=== PATIENT | male | born 1955 | race Caucasian/White ===

== ENCOUNTER 2018-03-17 16:52 | Observation (INO) | payer MEDICARE, SELFPAY ==
[2018-03-17] VITALS (7 sets, daily range): BP systolic 116–143; BP diastolic 76–87; PULSE 62–89; RESP 16–22; TEMP 36.4–37.4; O2SAT 89–96; BMI 28.7; BMI 29.0
--- NOTE | 2018-03-17 17:07 | EKG12_ITS ---
Test Reason : SOB Blood Pressure : / mmHG Vent. Rate : 085 BPM Atrial Rate : 085 BPM P-R Int : 216 ms QRS Dur : 158 ms QT Int : 388 ms P-R-T Axes : 034 -26 114 degrees QTc Int : 461 ms Sinus rhythm with 1st degree A-V block Left bundle branch block Abnormal ECG Confirmed by TIFFANY GIPSON, SHARONDA ([id number]), scientific editor ANTONINO BUNCH ([id number] on 03/20/2018 12:54:52 PM Referred By: KARIE Confirmed By:SHARONDA ALLEN MD
--- NOTE | 2018-03-17 17:12 | ED.VISSUMM ---
- ER Visit Summary Date of Service: 03/17/18 Chief Complaint: Shortness of breath History of Present Illness: The patient is a 63 M with cough and congestion that started on the . states he woke early the morning of the with difficulty breathing and increased mucus production. He is complaining of upper abdominal soreness from coughing. states he was complaining of some left chest pain on the way to the ER, but he denied this. Patient was seen by PCP in the office today and sent to the ER. His oxygen saturation was reported 92%. 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 Physical Examination: Vital signs are unremarkable. Respiratory rate is 16 and pulse ox is 92% on room air. Head neck examination is unremarkable. Heart is regular rate and rhythm. Lung sounds are slightly diminished throughout. Abdomen is soft nontender. Lower external examination was no calf tenderness or edema. Neuro exam reveals mild left facial droop that is chronic and unchanged from baseline. Test Results: EKG is sinus 85 with a first-degree AV block and a left bundle branch block. No acute ST change noted. Portable chest x-ray shows COPD with fibrosis and atelectasis or infiltrate in the right base. CBC was normal white count with left shift is noted with 82% neutrophils. Chemistry studies are normal. Troponin is less than 0.02. BNP is normal. Blood cultures were obtained. Emergency Department Course and Treatment: Patient was given a DuoNeb treatment IV fluids. He will be given Rocephin and Zithromax. I did take him off of supplemental oxygen and his oxygen saturation came down to 89%. He is generally weak. When he gets ill reportedly has myotonic dystrophy gets worse. Temperature at this time is 99.2. I will speak with hospitalist regarding admission. Treatment Plan: [] Disposition: Admit Impression: 1. Bronchitis with mild hypoxia 2. 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 It may contain incorrect words, spelling, and punctuation that were not noted in review of the chart prior to signing ED Disposition - Plan for ED Patient: Chief Complaint: Shortness of Breath Referrals: Isak Hernandez MD [Primary Care Provider] -
--- NOTE | 2018-03-17 17:15 | RAD_ITS ---
STUDY: X-RAY CHEST REASON FOR EXAM: Male, 63 years old. Short of breath. Chest pain. Nausea. TECHNIQUE: Single AP portable view of the chest. COMPARISON: None. FINDINGS: The lungs are hyperexpanded. There are coarsened interstitial markings suggestive of mild chronic fibrosis. Focal atelectasis or infiltrate in the right lung base. No gross effusions. Normal size heart. Normal mediastinum and caroline. Normal visualized pulmonary arteries. Normal visualized aortic arch and descending thoracic aorta. Normal visualized thoracic spine. Normal visualized ribs, clavicles, and shoulders. There is no demonstrated abnormality of the visualized soft tissue structures of the upper abdomen. RAD/Chest 1 View (Portable) IMPRESSION: COPD with fibrosis, and atelectasis or infiltrate in the right lung base. Electronically Signed: Manan Bryson MD at 17:32 EDT , Service support ,
[2018-03-17] MEDS: Ipratropium/Albuterol Sulfate 3 ML AMPUL.NEB INHALATION ×2 (17:22→22:27)
[2018-03-17 17:45] LABS: Absolute Lymphocyte Count 1.06 X10^3/ul (0.83-4.51); Absolute Neutrophil Count 8.1 X10^3/uL (2.0-7.7); Basophil# 0.01 X10^3/uL; Basophil% 0.1 % (0-1); Eosinophil# 0.01 X10^3/uL; Eosinophils% 0.1 % (0-5); Hematocrit 48.3 % (40-54); Hemoglobin 16.4 g/dl (13.0-16.5); Lymphocyte # 1.06 X10^3/ul (4.0); Lymphocyte % 10.8 % (19-41); Mean Corpuscular Hgb 32.8 pg (27.0-32.0); Mean Corpuscular Volume 96.6 fL (80-94); Mean Platelet Vol. 10.6 fl (6.2-12.0); Monocyte# 0.63 X10^3/uL; Monocyte% 6.4 % (0-10); Neutrophil # 8.11 X10^3/uL (2.7-7.7); Neutrophil % 82.5 % (47-70); Platelet Count 169 K/mm3 (150-450); RBC Distribution Width CV 14.3 % (11.6-14.6); RBC Distribution Width SD 50.7 fl (35.1-43.9); White Blood Count 9.8 K/mm3 (4.4-11.0)
[2018-03-17] MEDS: 0.9% Normal Saline 1,000 ML 150 ML IV (17:45)
[2018-03-17 17:46] LABS: POSITIVE COUNT NO; POSITIVE DIFFERENTIAL NO; POSITIVE MORPHOLOGY NO
[2018-03-17 18:05] LABS: Anion Gap 5 (5-15); BUN 13 mg/dL (7-18); BUN/Creat Ratio 11.2 RATIO (10-20); Calcium,Total 9.3 mg/dL (8.5-10.1); Chloride 107 mmol/L (98-107); Creatinine, Serum 1.16 mg/dL (0.70-1.30); EST Glomerular Filtration Rate 68 mL/min (>60); Est Glom Filt Rate - Afr Amer 82 mL/min (>60); Estimated Creatinine Clearance 68.18 ml/min; Glucose 100 mg/dL (74-106); Potassium 3.9 mmol/L (3.5-5.1); Sodium Level 140 mmol/L (136-145)
[2018-03-17 18:08] LABS: BNP,B-Type NATRIURETIC PEPTIDE 38.3 pg/mL (0-100)
[2018-03-17] MEDS: Ceftriaxone 1 GM/50 mL Premix x1 IV (20:33)
--- NOTE | 2018-03-17 20:42 | HP.PCM_ITS ---
Problem List (1) Shortness of breath Status: Acute (2) Myotonia Status: Chronic (3) History of colon polyps Status: Chronic (4) Family history of colon cancer in father Status: Chronic History of Present Illness Date of Admission: 03/17/18 Chief Complaint: shortness of breath The patient is a 63 year old male patient with a significant past medical history of Myotonia presents to the her from his primary care physician's office with shortness of breath. He was complaining of difficulty of breathing and inability to have a productive cough to clear his airway adequately due to myotonia. He is more comfortable since receiving airway inhalation treatments and oxygen per nasal cannula. Chest x-ray shows a hyperinflation pattern compatible with COPD and pulmonary fibrosis along with atelectasis vs pneumonia in the right side. Blood count is within normal limits. Since patient failed outpatient therapy and was uncomfortable taking him home from ER he will be admitted for observation. Past Medical History Past Medical History (Chronic Problems): Chronic Problems Myotonia (Chronic) History of colon polyps (Chronic) Family history of colon cancer in father (Chronic) Allergies No Known Allergies Allergy (Verified 03/17/18 16:54) Home Medications: Ambulatory Orders Medication Instructions Recorded NK [NK] 11/07/17 Smoking Status: Never smoker - *Family History Paternal History Items: Cancer - Father had colorectal cancer Review of Systems Constitutional: Reports: Weakness - due to chronic disease, Fatigue. Denies: Chills, Fever, Weight Change HEENT: Denies: Head Aches, Sinus Congestion, Sinus Drainage Cardiovascular: Denies: Chest Pain, Palpitations Respiratory: Reports: Cough, Shortness of breath at rest. Denies: Sputum production Gastrointestinal: Denies: Abdominal Pain, Nausea, Vomiting Genitourinary: Denies: Dysuria Musculoskeletal: Denies: Joint Pain, Joint Tenderness Skin: Denies: Rash, Wounds Neurological: Denies: Numbness, Tingling, Focal weakness Psychiatric: Denies: Anxiety, Depression, Homicidal Ideations, Suicidal Ideations Hematologic/ Lymphatic: Denies: Easy Bruising, Easy Bleeding VTE Information - Inpt Only VTE Present on Admission: No VTE Mechan Device Prophylaxis: None VTE Pharm Prophylaxis ordered?: Yes Patient Problems: Active and Suspected Problems Shortness of breath (Acute) - Physical Exam General: Alert, Oriented x3, Cooperative HEENT: Atraumatic, Normocephalic Neck: Supple Lungs: Normal air movement, - - coarse lung sounds Cardiovascular: Regular rate, No murmurs Abdomen: Bowel Sounds Present, Soft, Non Tender Extremities: No edema, Capillary Refill Less than 3 Seconds Skin: No rashes Musculoskeletal: Muscle Wasting Neurological: Neuro grossly intact Psych/Mental Status: Normal Affect, Appropriate Vital Signs Temp Pulse Resp BP Pulse Ox 99.3 F H 62 16 143/76 H 89 03/17/18 20:22 03/17/18 18:10 03/17/18 18:10 03/17/18 16:53 03/17/18 20:22 Oxygen Flow Rate (L/min) 2 Oxygen Delivery Method Room Air Weight: 200 lb Body Mass Index (BMI) 28.7 Laboratory Tests Past 24 Hrs 03/17/18 03/17/18 03/17/18 17:30 17:30 17:30 WBC 9.8 RBC 5.00 Hgb 16.4 Hct 48.3 MCV 96.6 H MCH 32.8 H MCHC 34.0 RDW 14.3 RDW Differential 50.7 H Plt Count 169 MPV 10.6 Immature Gran % (Auto) 0.100 Neut % (Auto) 82.5 H Lymph % (Auto) 10.8 L [place] % (Auto) 6.4 Eos % (Auto) 0.1 Baso % (Auto) 0.1 Absolute Neuts (auto) 8.1 H Absolute Lymphs (auto) 1.06 Total Counted Not Reportable Sodium 140 Potassium 3.9 Chloride 107 Carbon Dioxide 28.0 Anion Gap 5 BUN 13 Creatinine 1.16 Estim Creat Clear Calc 68.18 Est GFR (MDRD) Af Amer 82 Est GFR (MDRD) Non-Af 68 BUN/Creatinine Ratio 11.2 Glucose 100 Calcium 9.3 Troponin I < 0.02 B-Natriuretic Peptide 38.3 Assessment/Plan Active and Suspected Problems Shortness of breath (Acute) Chronic conditions - Myotonia Plan - admit to medical surgical floor for observation - PT eval and treat in am for deconditioning due to Myotonia for ADLs and fall risk - duoneb inh q 4hrs prn - oxygen per protocol - solumedrol 40mg iv q 8hrs - levaquin 500mg iv q day - LMWH for dvt prophylaxis - CBC, BMP in am Code Visit OBSV E&M: 47807 Initial observation care L2
[2018-03-17] MEDS: levoFLOXacin IV 500 MG/100 ML BAG 100 MG IV (22:32)
[2018-03-17] MEDS: 0.9% Normal Saline 1,000 ML 75 ML IV (22:32)
[2018-03-18 03:57] VITALS: BP 121/86; PULSE 93; RESP 20; TEMP 36.8; O2SAT 95
[2018-03-18 06:56] LABS: Absolute Lymphocyte Count 0.53 X10^3/ul (0.83-4.51); Absolute Neutrophil Count 3.9 X10^3/uL (2.0-7.7); Differential Indicated SCAN CRITERIA MET; Hematocrit 44.4 % (40-54); Hemoglobin 15.4 g/dl (13.0-16.5); Lymphocyte # 0.53 X10^3/ul (4.0); Lymphocyte % 11.8 % (19-41); Mean Corp Hgb Conc 34.7 g/gl (32-36); Mean Corpuscular Hgb 33.4 pg (27.0-32.0); Mean Corpuscular Volume 96.3 fL (80-94); Mean Platelet Vol. 10.8 fl (6.2-12.0); Monocyte% 2.2 % (0-10); Neutrophil # 3.85 X10^3/uL (2.7-7.7); Neutrophil % 85.8 % (47-70); POSITIVE COUNT NO; POSITIVE DIFFERENTIAL YES; POSITIVE MORPHOLOGY NO; Platelet Count 145 K/mm3 (150-450); RBC Distribution Width CV 14.2 % (11.6-14.6); RBC Distribution Width SD 48.6 fl (35.1-43.9); Red Blood Count 4.61 M/mm3 (4.6-6.2); White Blood Count 4.5 K/mm3 (4.4-11.0)
[2018-03-18 07:08] LABS: ALB/GLOB Ratio 0.8 RATIO (0.9-2.4); AST(SGOT) 17 U/L (15-37); Alanine Aminotransfer ALT/SGPT 21 U/L (16-61); Albumin, Serum 2.9 g/dL (3.2-5.0); Alkaline Phosphatase 64 U/L (45-117); Anion Gap 7 (5-15); BUN 10 mg/dL (7-18); BUN/Creat Ratio 11.6 RATIO (10-20); Calcium,Total 8.3 mg/dL (8.5-10.1); Chloride 112 mmol/L (98-107); Creatinine, Serum 0.86 mg/dL (0.70-1.30); EST Glomerular Filtration Rate 95 mL/min (>60); Est Glom Filt Rate - Afr Amer 115 mL/min (>60); Estimated Creatinine Clearance 91.96 ml/min; Globulin 3.5 g/dL (2.2-4.2); Glucose 145 mg/dL (74-106); Protein, Total 6.4 g/dL (6.4-8.2); Sodium Level 143 mmol/L (136-145)
[2018-03-18 07:17] VITALS: PULSE 84; RESP 16; O2SAT 94
[2018-03-18] MEDS: Ipratropium/Albuterol Sulfate 3 ML AMPUL.NEB INHALATION ×2 (07:17→10:57)
--- NOTE | 2018-03-18 07:32 | PCM.PN.HOSP ---
Subjective: Patient was seen and examined. Feels much better. No wheezes. On only 1 L of oxygen. Reevaluated his oxygen requirement and patient was saturating 95%. Ambulated around the nursing floor with no shortness of breath. Vitals/I&O's: Vital Signs Temp Pulse Resp BP Pulse Ox 98.2 F 93 20 H 121/86 H 95 03/18/18 03:57 03/18/18 03:57 03/18/18 03:57 03/18/18 03:57 03/18/18 03:57 Oxygen Flow Rate (L/min) 1 Oxygen Delivery Method Nasal Cannula Weight: 91.739 kg Body Mass Index (BMI) 29.0 Intake and Output for Last 24 Hours 03/16/18 03/17/18 03/18/18 23:59 23:59 23:59 Intake Total 1210 / 1210 Balance 1210 / 1210 General: Alert, Oriented x3, Cooperative, No apparent distress HEENT: Atraumatic, PERRLA, EOMI, Normocephalic Oral: Moist Mucosa Neck: Supple Lungs: Clear to auscultation, Normal air movement Cardiovascular: Regular rate, Regular Rhythm, Normal S1, Normal S2, No murmurs Abdomen: Bowel Sounds Present, Soft, Non Tender, Non-Distended, No Hepato-splenomegaly Extremities: No edema Skin: No rashes, No breakdown Musculoskeletal: No Tenderness to Palpation of Joints or Extremities Lymphatic: No Cervical, Supraclavicular, or Inguinal Adenopathy Neurological: Cranial nerves II-XII grossly intact, Neuro grossly intact Psych/Mental Status: Normal Affect, Appropriate Laboratory Results 03/18/18 06:15: WBC 4.5, RBC 4.61, Hgb 15.4, Hct 44.4, MCV 96.3 H, MCH 33.4 H, MCHC 34.7, RDW 14.2, RDW Differential 48.6 H, Plt Count 145 L, MPV 10.8, Immature Gran % (Auto) 0.200, Neut % (Auto) 85.8 H, Lymph % (Auto) 11.8 L, Dare % (Auto) 2.2, Eos % (Auto) 0.0, Baso % (Auto) 0.0, Absolute Neuts (auto) 3.9, Absolute Lymphs (auto) 0.53 L, Total Counted Not Reportable 03/18/18 06:15: Sodium 143, Potassium 4.0, Chloride 112 H, Carbon Dioxide 24.0, Anion Gap 7, BUN 10, Creatinine 0.86, Estim Creat Clear Calc 91.96, Est GFR (MDRD) Af Amer 115, Est GFR (MDRD) Non-Af 95, BUN/Creatinine Ratio 11.6, Glucose 145 H, Calcium 8.3 L, Total Bilirubin 1.00, AST 17, ALT 21, Alkaline Phosphatase 64, Total Protein 6.4, Albumin 2.9 L, Globulin 3.5, Albumin/Globulin Ratio 0.8 L Current Medications Albuterol/Ipratropium (Duoneb) 3 ml INHALATION Q4H.RT [facility] Last Admin: 03/18/18 07:17 Dose: 3 ml Enoxaparin Sodium (Lovenox) 40 mg SC DAILY@1000 OSMANY Sodium Chloride () 1,000 mls @ 75 mls/hr IV .[id number] [facility] Last Admin: 03/17/18 22:32 Dose: 75 mls/hr Levofloxacin (Levaquin Iv) 500 mg in 100 mls @ 100 mls/hr IV Q24 [facility] Last Admin: 03/17/18 22:32 Dose: 100 mls/hr Magnesium Hydroxide (Milk Of Magnesia) 30 ml PO DAILY PRN PRN PRN Reason: Constipation Methylprednisolone (Solu-Medrol) 40 mg IV Q8 [facility] Last Admin: 03/18/18 05:28 Dose: 40 mg Sodium Chloride () 5 - 30 ml IV UD PRN PRN Reason: SALINE FLUSH Medical Necessity - Tobacco Use Smoking Status: Never smoker Assessment/Plan 63-year-old male with myotonic dystrophy who comes in with shortness of breath and has been managed as acute bronchitis. 1. Acute hypoxic respiratory failure secondary to acute bronchitis, resolved, off oxygen, did not qualify for home oxygen. 2. Acute bronchitis/acute COPD exacerbation, patient improved on steroids and breathing treatments, discharged on p.o. prednisone and Z-Calvin. 3. Myotonic dystrophy, no evidence of weakness seen on exam, follows in the outpatient. 4. DVT Prophylaxis with early ambulation/Lovenox Code Visit Inpatient E&M: 00934 Disch Hosp
[2018-03-18] MEDS: Enoxaparin 40 MG/0.4 ML Syringe SC (09:54)
[2018-03-18] MEDS: levoFLOXacin IV 500 MG/100 ML BAG 100 MG IV (09:56)
[2018-03-18 10:01] VITALS: O2SAT 91; O2SAT 92
[2018-03-18 10:08] VITALS: BP 114/56; PULSE 68; RESP 16; TEMP 36.5; O2SAT 92
--- NOTE | 2018-03-18 10:08 | PCM.DC ---
- Discharge Diagnoses Current Active Problems: Current Active and Chronic Problems Shortness of breath (Acute) Myotonia (Chronic) Reason(s) for Visit for Discharge Instructions: Shortness of breath You will use the following diet at home:: Regular Your food should be the consistency of: Regular Your liquids should be the consistency of: Regular/Thin Discharge Activity: Return to Normal Activity Additional Instructions: You were admitted with SOB and managed as acute bronchitis. You were managed on oxygen but did not require oxygen prior to discharge. You are being discharged on antibiotics and a short course of steroids. Follow-up with your primary care doctor. Continue to use your incentive spirometer. Allergies/Adverse Reactions: Allergies No Known Allergies Allergy (Verified 03/17/18 16:54) Medications to take at Discharge Levofloxacin [Levaquin] 500 mg PO DAILY #4 tab 03/18/18 Prednisone [Deltasone] 40 mg PO DAILY #5 tab 03/18/18 The following prescriptions were given: Levofloxacin [Levaquin] 500 mg PO DAILY #4 tab Prednisone [Deltasone] 40 mg PO DAILY #5 tab Primary Care Physician: Isak Hernandez MD [Primary Care Provider] - Please follow up with your Primary Care Physician in: within 2 weeks Proposed Discharge Date: 03/18/18
--- NOTE | 2018-03-18 10:12 | PCM.DC.SUM ---
Discharge Date and Diagnosis Date of Admission: 03/17/18 Date of Discharge: 03/18/18 - Primary Discharge Diagnosis Active and Suspected Problems Shortness of breath (Acute) - Secondary Discharge Diagnosis Chronic Problems Myotonia (Chronic) History of colon polyps (Chronic) Family history of colon cancer in father (Chronic) Hospital Course and Treatment Imaging Results: Clinical Impression(s) from Imaging Studies Chest X-Ray 03/17/18 17:15 IMPRESSION: COPD with fibrosis, and atelectasis or infiltrate in the right lung base. Electronically Signed: Manan Bryson MD at 17:32 EDT , Service support , None Operations: None Procedures: None Summary of Care Provided: 63-year-old male with myotonic dystrophy who comes in with shortness of breath and has been managed as acute bronchitis. 1. Acute hypoxic respiratory failure secondary to acute bronchitis, resolved, off oxygen, did not qualify for home oxygen. 2. Acute bronchitis/acute COPD exacerbation, patient improved on steroids and breathing treatments, discharged on p.o. prednisone and Z-Calvin. Respiratory panel was pending at time of discharge. 3. Myotonic dystrophy, no evidence of weakness seen on exam, follows in the outpatient. Discharge Diet: Low fat/ Low Cholesterol, 2000 mg Sodium Diet Discharge Activity: Return to Normal Activity Home Medications: Medications to take at Discharge Azithromycin [Zithromax Z-Calvin] 250 mg PO UD #1 box 03/18/18 Prednisone [Deltasone] 40 mg PO DAILY #5 tab 03/18/18 Following Prescrptions Were Given to Patient: Azithromycin [Zithromax Z-Calvin] 250 mg PO UD #1 box Prednisone [Deltasone] 40 mg PO DAILY #5 tab Primary Care Physician: Isak Hernandez MD [Primary Care Provider] - Please follow up with your Primary Care Physician in: within 2 weeks Disposition: Home Minutes spent on discharge:: 35 Patient Condition:: Stable Medical Necessity - Tobacco Use Smoking Status: Never smoker Meaningful Use Info Meaningful Use Diagnoses (Choose all that apply): None applicable Code Visit Inpatient E&M: 71096 Disch Hosp
[2018-03-18 10:57] VITALS: PULSE 82; RESP 16
== END 2018-03-18 12:45 | disposition home or self-care (01) ==
LOC: ED 17:11 → MS3 21:00
PROVIDERS: Admitting Provider Family Medicine; Emergency Provider Emergency Medicine; Family Provider Family Medicine; PCP Family Medicine; Visit Provider Internal Medicine
DX: J44.1 Chronic obstructive pulmonary disease with (acute) exacerbation (principal); J20.9 Acute bronchitis, unspecified; M62.89 Other specified disorders of muscle; Z86.010 Personal history of colon polyps; Z80.0 Family history of malignant neoplasm of digestive organs; J44.0 Chronic obstructive pulmonary disease with (acute) lower respiratory infection; J96.01 Acute respiratory failure with hypoxia; J84.10 Pulmonary fibrosis, unspecified
CPT/HCPCS: 36415; 71045; 80048; 80053; 83880; 84484; 85025; 87040; 87633; 93005; 94640; 96361; 96365; 96366; 96367; 96372; 96375; 96376; 97162; 99218; 99284; J7030; A4216; G0378

== ENCOUNTER → 2018-07-02 11:04 | Outpatient (CLI) | payer MEDICARE, SELFPAY ==
--- NOTE | 2018-07-02 11:07 | RAD_ITS ---
STUDY: X-RAY CHEST REASON FOR EXAM: Male, 63 years old. Cough TECHNIQUE: Frontal and lateral views of the chest COMPARISON: 03/17/2018 FINDINGS: The lungs are clear. There are no pleural effusions. There is no pneumothorax. The heart is normal in size. The visualized osseous structures are within normal limits. RAD/Chest PA and Lateral IMPRESSION: No acute thoracic pathology. Electronically Signed: Shashi Acosta, at 20:14 EDT Tel , Service support ,
== END ==
PROVIDERS: Family Provider Family Medicine; PCP Family Medicine; Visit Provider Family Medicine
DX: J18.9 Pneumonia, unspecified organism (principal)
CPT/HCPCS: 71046

== ENCOUNTER → 2018-10-14 09:22 | Outpatient (CLI) | payer MEDICARE, SELFPAY ==
[2018-10-14 12:26] LABS: Absolute Lymphocyte Count 2.15 X10^3/ul (0.83-4.51); Absolute Neutrophil Count 2.1 X10^3/uL (2.0-7.7); Basophil# 0.05 X10^3/uL; Eosinophil# 0.25 X10^3/uL; Hematocrit 48.2 % (40-54); Hemoglobin 16.7 g/dl (13.0-16.5); Lymphocyte # 2.15 X10^3/ul (4.0); Lymphocyte % 42.7 % (19-41); Mean Corp Hgb Conc 34.6 g/gl (32-36); Mean Corpuscular Hgb 33.7 pg (27.0-32.0); Mean Corpuscular Volume 97.2 fL (80-94); Mean Platelet Vol. 11.6 fl (6.2-12.0); Monocyte# 0.47 X10^3/uL; Monocyte% 9.3 % (0-10); Neutrophil % 41.8 % (47-70); POSITIVE COUNT NO; POSITIVE DIFFERENTIAL NO; POSITIVE MORPHOLOGY NO; Platelet Count 202 K/mm3 (150-450); RBC Distribution Width CV 14.1 % (11.6-14.6); RBC Distribution Width SD 49.8 fl (35.1-43.9); Red Blood Count 4.96 M/mm3 (4.6-6.2)
[2018-10-14 12:52] LABS: Anion Gap 8 (5-15); BUN 10 mg/dL (7-18); BUN/Creat Ratio 10.6 RATIO (10-20); Calcium,Total 8.8 mg/dL (8.5-10.1); Chloride 110 mmol/L (98-107); Cholesterol 185 mg/dL (200); Creatinine, Serum 0.94 mg/dL (0.70-1.30); EST Glomerular Filtration Rate 86 mL/min (>60); Est Glom Filt Rate - Afr Amer 104 mL/min (>60); Glucose 81 mg/dL (74-106); High Density Lipoprotein 46 mg/dL; Potassium 3.8 mmol/L (3.5-5.1); Sodium Level 145 mmol/L (136-145); Thyroid Stim Hormone (TSH) 1.36 uIU/mL (0.358-3.74); Triglycerides 138 mg/dL; Very Low Density Lipoprotein 28 mg/dL (5-40)
[2018-10-14 12:54] LABS: Vitamin B12 286 pg/mL (211-911)
== END ==
PROVIDERS: Family Provider Family Medicine; PCP Family Medicine; Visit Provider Family Medicine
DX: E53.8 Deficiency of other specified B group vitamins (principal); G71.11 Myotonic muscular dystrophy; Z13.220 Encounter for screening for lipoid disorders
CPT/HCPCS: 36415; 80048; 80061; 82607; 84443; 85025

== ENCOUNTER → 2019-06-23 16:51 | Outpatient (CLI) | payer MEDICARE, SELFPAY ==
[2018-03-17 21:37] VITALS: BMI 29.0
--- NOTE | 2019-06-23 16:55 | RAD_ITS ---
STUDY: X-RAY - RIGHT FOOT CLINICAL: Male, 64 years old. Injury in early May, continued pain TECHNIQUE: 3 view(s) of the foot. COMPARISON: None. FINDINGS: There is demineralization of the rear and midfoot bones. Normal visualized subtalar, talonavicular, calcaneocuboid, tarsal and tarsometatarsal articulations. Normal metatarsi. Normal metatarsophalangeal joint of the great toe. Normal tibial and fibular sesamoid bones. Normal interphalangeal joint of the great toe. Normal phalanges of the great toe. Normal second through fifth metatarsophalangeal joints. Normal interphalangeal joints and phalanges of the lesser toes. Arterial calcifications are seen in the ankle and foot region. RAD/Foot min 3 Views IMPRESSION: Generalized osteopenia. There is no evidence of fracture, dislocation, or significant degenerative disease. Soft tissue arterial calcifications are noted in the ankle and foot area. Electronically Signed: Mg Youngblood MD at 23:57 EDT , Service support ,
== END ==
PROVIDERS: Family Provider Family Medicine; PCP Family Medicine; Referring Provider Family Medicine; Visit Provider Family Medicine
DX: M79.671 Pain in right foot (principal)
CPT/HCPCS: 73630

== ENCOUNTER → 2019-09-17 13:34 | Outpatient (CLI) | payer MEDICARE, SELFPAY ==
[2018-03-17 21:37] VITALS: BMI 29.0
[2019-09-17 16:02] LABS: Vitamin D,25 Hydroxy 23.4 ng/mL (29.95-100.01)
== END ==
PROVIDERS: Family Provider Family Medicine; PCP Family Medicine
DX: E55.9 Vitamin D deficiency, unspecified (principal); G71.11 Myotonic muscular dystrophy
CPT/HCPCS: 36415; 82306

== ENCOUNTER → 2019-10-05 14:28 | Outpatient (CLI) | payer MEDICARE, SELFPAY ==
[2019-10-05 16:44] LABS: PSA,Total - Annual Screen 0.69 ng/mL (0.00-4.00)
== END ==
PROVIDERS: Family Provider Family Medicine; PCP Family Medicine; Visit Provider Family Medicine
DX: Z12.5 Encounter for screening for malignant neoplasm of prostate (principal); Z80.42 Family history of malignant neoplasm of prostate
CPT/HCPCS: 36415; 84153; G0103

== ENCOUNTER → 2020-01-12 13:02 | Outpatient (CLI) | payer MEDICARE, SELFPAY ==
[2020-01-12 13:06] LABS: Red Blood Cells-Urine 0 SEEN /hpf (0-5); Squamous Epithelial Cells - UA 0 SEEN /hpf (0-5); White Blood Cells 0 SEEN /hpf (0-5)
[2020-01-12 15:12] LABS: Color, Urine Yellow (Yellow); Glucose, Dipstick Normal (Normal); Ketone-Dipstick Negative (Negative); Leukocyte Esterase-Dipstick Negative /ul (Negative); Nitrite-Dipstick Negative (Negative); Occult Blood-Urine Negative /ul (Negative); Protein-Dipstick Negative (Negative); Specific Gravity, Urine 1.025 (1.002-1.030); Urine Bilirubin Dipstick Negative (Negative); Urine Clarity Clear (Clear); Urine Urobilinogen Normal (Normal)
[2020-01-12 15:22] LABS: Bacteria RARE /hpf (None Seen); Calcium Oxalate Crystals Ur 2+ /hpf (<or=2+); Mucous, Urine 2+ /hpf (<or=2+)
== END ==
PROVIDERS: PCP Family Medicine; Visit Provider Family Medicine
DX: R35.0 Frequency of micturition (principal)
CPT/HCPCS: 81001; 87086; 87088

== ENCOUNTER 2020-06-27 10:11 | Emergency (ER) | payer MEDICARE, SELFPAY ==
[2020-06-27 10:11] VITALS: BP 102/74; PULSE 79; RESP 17; TEMP 36.5; O2SAT 94
[2020-06-27 10:12] VITALS: BP 102/74; PULSE 79; RESP 17; TEMP 36.5; O2SAT 94; BMI 28.7
[2020-06-27 10:15] VITALS: BP 102/74; PULSE 79; RESP 17; TEMP 36.5; O2SAT 94
--- NOTE | 2020-06-27 10:21 | ED.DCSUM_ITS ---
History of Present Illness Chief Complaint: Cough Informant: Patient Narrative: Patient is a 65-year-old male with a past medical history of myotonia who presents to the emergency department for cough. No associated fevers or chills. No known sick contacts. He states that he had the hiccups 2 days ago.. He tried drinking some vinegar to stop them. 20 minutes after drinking this is when the cough started. He has had some clear sputum production. He has a history of pneumonia as well as severe bronchitis in the past per the family. He denies a smoking history. Has not had any leg swelling or calf pain. No associated chest pain or shortness of breath with this. No abdominal pain or nausea/vomiting. No diarrhea. He denies any headache, sore throat or stiff neck. No rashes. Nobody else with similar symptoms at home. He has not tried taking anything for this. Past Medical History - Allergies and Home Meds Allergies/Adverse Reactions: Allergies No Known Allergies Allergy (Verified 06/27/20 10:12) Primary Care Physician: Isak Hernandez MD [Primary Care Provider] - Past Medical History: - - Myotonia, hypertension, history of leaky heart valve Smoking Status: Never smoker - Family History Paternal Family History: Reports: Cancer - Father had colorectal cancer Review of Systems All systems negative except as indicated General: Denies: Chills, Fever, Sweats Eyes: Denies: Visual changes - bilaterally, Diplopia ENT: Denies: Rhinorrhea, Sore throat Cardiovascular: Denies: Chest pain, Palpitations Respiratory: Reports: Cough, Sputum. Denies: Dyspnea, Dyspnea on exertion Gastrointestinal: Denies: Abdominal pain, Nausea, Vomiting, Diarrhea Musculoskeletal: Denies: Back pain, Extremity Pain Skin: Denies: Rash, Wounds Neurological: Denies: Headache, Weakness, Numbness Physical Exam Vital Signs/Narrative: Vital Signs Temp Pulse Resp BP Pulse Ox 06/27/20 10:12 97.7 F L 79 17 102/74 94 General: Well nourished, Well developed, No Acute Distress Head: Normocephalic, Atraumatic Eyes: Perrl, EOMI ENT: Moist mucous membranes, No rhinorrhea. Negative for: Nasal congestion Neck: Supple, Nontender Cardiovascular: Regular rate, Regular rhythm, S3, Murmur Respiratory: No distress, CTA bilaterally, Chest nontender Abdomen: Soft, Nontender, Nondistended Back: Nontender Extremities: No edema. Negative for: Tenderness, Calf Tenderness Neurological: Alert, Oriented x3 Psychological: Normal affect, Normal Mood Diagnostic/Tx/Re-eval - Medical Decision Making Patient presents emergency department for cough. He does relate this to drinking vinegar prior to onset of symptoms. He denies any fevers or chills. No known sick contacts. No concern for coronavirus. Upon arrival to the emerge department vital signs within normal limits. He does not appear in any acute distress and has no increased work of breathing. Will obtain chest x-ray at this time. Since he has no chest pain or shortness of breath I do not feel any lab work are indicated at this time. X-ray did not show any acute cardiopulmonary abnormality. Patient not coughing throughout exam. He has no other complaints at this time. We will give a prescription for Tessalon Perles for symptomatic treatment at home. He needs to have close follow-up with his PCP. He develops any significant chest pain, shortness of breath or develops any fever/chills he can return to the emerge department anytime for reevaluation. At this time will treat as a viral URI. He understands and is agreeable with this plan. ED Disposition - Plan for ED Patient: Disposition: Home or Assisted Living Diagnosis: Cough Instructions: ED Upper Resp Infec No Abx Tx Prescriptions: Benzonatate [Tessalon Perle] 100 mg PO Q4H PRN PRN #20 cap PRN Reason: Cough Transmission Status: Received by [id number] Referrals: Isak Hernandez MD [Primary Care Provider] -
--- NOTE | 2020-06-27 11:06 | RAD_ITS ---
STUDY: X-RAY CHEST REASON FOR EXAM: Male, 65 years old. PRODUCTIVE COUGH AND SORE THROAT X2 DAYS TECHNIQUE: PA and lateral views of the chest. COMPARISON: Comparison is made with prior study dated 07/02/2018. FINDINGS: Hyperinflation. Scattered calcified granulomas. There is no demonstrated pleural abnormality. Normal size heart. Normal mediastinum and caroline. Normal visualized pulmonary arteries. Normal visualized aortic arch and descending thoracic aorta. Normal visualized thoracic spine. Normal visualized ribs, clavicles, and shoulders. There is no demonstrated abnormality of the visualized soft tissue structures of the upper abdomen. RAD/Chest PA and Lateral IMPRESSION: Hyperinflation. The lungs are clear. Electronically Signed: Gage Hernandez, at 11:18 EDT , Service support ,
[2020-06-27 11:41] VITALS: BP 101/75; PULSE 71; RESP 18; RESP 19; TEMP 37.2; O2SAT 94
== END 2020-06-27 11:42 | disposition home or self-care (01) ==
PROVIDERS: Emergency Provider Emergency Medicine; PCP Family Medicine
DX: R05 Cough (principal); I10 Essential (primary) hypertension
CPT/HCPCS: 71046; 99282

== ENCOUNTER → 2020-11-22 10:48 | Outpatient (CLI) | payer MEDICARE, SELFPAY ==
--- NOTE | 2020-11-22 10:50 | ECHOD_ITS ---
Reason For Study: CMP, AI, CHF Procedure This was a 2D Doppler, Color Flow transthoracic echocardiogram. The study was technically difficult. Exam performed in department. Left Ventricle Normal LV size. The estimated ejection fraction is 60 %. No evidence for diastolic dysfunction. No regional wall motion abnormalities noted. Right Ventricle Normal RV size. Normal systolic function. Atria Normal left atrium. Normal right atrium. No doppler evidence for ASD. Mitral Valve There is no mitral valve stenosis. No mitral valve insufficiency. Tricuspid Valve There is no tricuspid stenosis. Unable to estimate RV systolic pressure due to insufficient tricuspid regurgitant envelope. Trivial tricuspid valve insufficiency. Aortic Valve Trisinus/trileaflet aortic valve. There is no aortic stenosis. Trivial aortic valve insufficiency. Pulmonic Valve There is no pulmonic valvular stenosis. No pulmonic valve insufficiency. Great Vessels Normal aortic root. Pericardium/Pleural No pericardial effusion. MMode/2D Measurements & Calculations LVIDd: 4.8 cm IVSd: 1.2 cm Ao root diam: 3.8 cm LVIDs: 3.2 cm LVPWd: 1.2 cm FS: 32.9 % LAV(MOD-bp): 33.4 ml LA A4 area: 11.4 cm2 LA dimension(2D): 3.3 cm LAV(MOD-bp) Indexed: 15.8 ml/m2 LAV(MOD-sp2): 38.1 ml LAV(MOD-sp4): 23.3 ml RA A4 area: 11.9 cm2 Time Measurements MV dec time: 0.29 sec Doppler Measurements & Calculations MV E max tunde: 36.3 cm/sec Lat Peak E' Tunde: 4.5 cm/sec Med Peak E' Tunde: 4.1 cm/sec MV A max tunde: 54.8 cm/sec E/E' lat: 8.2 E/E' med: 8.8 MV E/A: 0.66 Ao V2 max: 109.3 cm/sec LV V1 max: 79.3 cm/sec PA V2 max: 98.8 cm/sec Ao max P.8 mmHg LV V1 max P.5 mmHg Ao V2 mean: 74.0 cm/sec LV V1 mean P.6 mmHg Ao mean P.4 mmHg LV V1 mean: 60.5 cm/sec Ao V2 VTI: 20.5 cm LV V1 VTI: 15.9 cm Interpretation Summary The estimated ejection fraction is 60 %. No evidence for diastolic dysfunction. Trivial aortic valve insufficiency. Ordering Physician: Shaw Lopez Referring Physician: Isak Hernandez Performed By: Mulu Kwon, ALISA, RVT
== END ==
PROVIDERS: PCP Family Medicine; Referring Provider Internal Medicine Cardiovascular Disease; Visit Provider Internal Medicine Cardiovascular Disease
DX: I42.9 Cardiomyopathy, unspecified (principal); I35.1 Nonrheumatic aortic (valve) insufficiency
CPT/HCPCS: 93306

== ENCOUNTER 2021-12-25 13:37 | Emergency (ER) | payer MEDICARE, SELFPAY ==
[2021-12-25 13:38] VITALS: BP 129/70; PULSE 70; RESP 18; TEMP 36.3; O2SAT 98; BMI 28.3
--- NOTE | 2021-12-25 14:35 | EDS_ITS ---
HPI History of Present Illness Chief Complaint: Fall Narrative Narrative: 66-year-old male presenting with head injury. He states that he slipped and fell getting out of the shower. His states that they were getting ready to go to the store and that she ran out to do some chores and was gone for 5 minutes and found him on the floor. He was awake. He seemed confused. He complained of nausea. She states that she had asked him 5 times if he was okay and then brought him to the emergency room. Patient has a contusion to the right side of his scalp occipitally. It is not actively bleeding. Patient also complains of neck pain. He initially had nausea but states this is resolved. He denies any other injuries at this time. 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 She has a wheelchair for him at home so he does not walk too much. [facility] Medical History Aortic valve disorder Cardiomyopathy in disease classified elsewhere Family history of colon cancer in father History of colon polyps LBBB (left bundle branch block) Myotonia Myotonic dystrophy Home Medications ascorbic acid (vitamin C) 500 mg tablet 500 mg PO DAILY 11/21/21 [History Last Taken Unknown] cholecalciferol (vitamin D3) 100 mcg (4,000 unit) tablet 100 mcg PO DAILY 11/21/21 [History Last Taken Unknown] carvedilol 3.125 mg tablet 3.125 mg PO BID #180 tab 11/30/21 [Rx Last Taken Unknown] losartan 25 mg tablet 25 mg PO DAILY #90 tab 11/30/21 [Rx Last Taken Unknown] Allergy/AdvReac Type Severity Reaction Status Date / Time lisinopril AdvReac Unknown Cough Verified 12/25/21 13:56 Family History Mother Heart disease Surgical History History of bilateral cataract extraction Social History Smoking Status: Never smoker alcohol intake: current substance use type: does not use ROS ROS ED Constitutional Constitutional ED: Denies chills, fever(s) or sweats Eyes Eyes: Denies blurry vision or change in vision ENT ENT ED: Denies ear pain or sore throat Cardiovascular Cardiovascular: Denies chest pain, palpitations or racing heartbeat Respiratory/Chest Respiratory/Chest: Denies cough, dyspnea or sputum Gastrointestinal Gastrointestinal: Reports nausea; Denies abdominal pain, constipation, diarrhea or vomiting Genitourinary Genitourinary ED: Denies dysuria, hematuria or urinary frequency Musculoskeletal Musculoskeletal: Reports neck pain; Denies arthralgias or myalgias Integumentary Reports other Details: Cephalohematoma with abrasion overlying ; Denies rash Neurologic Neurologic: Denies headache(s), paresthesias or weakness Psychiatric Psychiatric: Denies anxiety, depression, suicidal ideation or suicidal thoughts Endocrine Endocrinology: Denies polydipsia or polyuria EXAM Physical Exam Const Vital Signs: 12/25/21 13:38 12/25/21 13:58 Temperature 97.4 F L Temperature Source Temporal Pulse Rate 70 Respiratory Rate 18 Respiratory Effort Normal Non-Labored Respiratory Depth Normal Respiratory Pattern Normal Blood Pressure 129/70 H Blood Pressure Mean 89 Pulse Ox 98 Oxygen Delivery Method Room Air Room Air Positive well nourished, alert and oriented x3 General Appearance ED: Negative for pallor HEENT Reports normocephalic and moist mucous membranes HEENT Narrative: Cephalohematoma on the right occipital region approximately 3 cm with superficial abrasion overlying. No active bleeding. No skull deformity. Eyes PERRL and EOMs intact bilaterally Neck no lymphadenopathy and supple Chest Wall inspection of chest normal and palpation of chest normal Resp normal respiratory effort and clear to auscultation bilaterally Auscultation: Negative for rales, rhonchi or wheezes Cardio regular rate and regular rhythm GI normal to inspection, nondistended, normoactive bowel sounds and non-distended Auscultation: normoactive bowel sounds Palpation: soft Narrative: Deferred Back/Spine no CVA tenderness Cervical Spine: other Other Details: Cervical spinal tenderness without deformity or step-off. This is diffuse. Extremity normal to inspection General Extremety ED: Yes edema and tenderness General Extremity: edema Neuro oriented x3 and CN's II-XII intact bilaterally Sensorium / Orientation: alert Motor Exam: strength 5/5 throughout Psych mental status grossly normal Attitude: No agitated Skin General Skin Exam: Negative for jaundice or pallor MDM MDM MDM Narrative Medical decision making narrative: Obtain CT brain and cervical spine which did not show any acute findings. CT of the cervical spine was negative for fracture. His CT of the brain did show chronic involutional changes and did suggest that there may be normal pressure hydrocephalus. Patient has history of myotonic dystrophy and is difficult to ambulate him at baseline. His states that he is not more confused than usual or having urinary complaints. I did give him follow-up with neurology outpatient doctor Brittaney, and at this time they told me that they have a neurologist at [facility] who they lost contact with over the pandemic. He recommended that they follow-up with that neurologist consider known to him. They stated that he had reached out to them tried to get him to come back but they had not. I do not believe the patient has any reason he cannot be discharged home and follow-up with neurology outpatient. They are given return cautions. Impression: 1. Fall 2. Closed head injury 3. Cervical strain Radiography Diagnostic Testing: Clinical Impression(s) from Imaging Studies Brain CT 12/25/21 14:44 IMPRESSION: Chronic involutional changes of the brain. Findings suggestive of a normal pressure hydrocephalus. Electronically Signed: Gage Hernandez MD at 15:20 EST , Cervical Spine CT 12/25/21 14:44 IMPRESSION: Multilevel degenerative changes, as described above. Straightening of the normal cervical lordosis. Electronically Signed: Gage Hernandez MD at 15:22 EST , Discharge Plan Triage Chief Complaint: Fall ED Provider: Lionel Villanueva Dx/Rx/DC Orders Instructions: ED Scalp Contusion, ED Head Injury (Adult), ED Neck Sprain or Strain, ED Fall Prevention Prescriptions: No Action carvedilol 3.125 mg tablet 3.125 mg PO BID Qty: 180 RF: 3 losartan 25 mg tablet 25 mg PO DAILY Qty: 90 RF: 3 ascorbic acid (vitamin C) 500 mg tablet 500 mg PO DAILY RF: 0 cholecalciferol (vitamin D3) 100 mcg (4,000 unit) tablet 100 mcg PO DAILY RF: 0 Primary Care Provider: Isak Hernandez Referrals: Javier Huang MD [STAFF PHYSICIAN] - As soon as possible Isak Hernandez MD [Primary Care Provider] - Activity Restrictions/Additional Instructions: The CT scan of your brain today was interpreted as possibly being normal pressure hydrocephalus. I will give you follow-up with neurology for this. Disposition Disposition: Home, Self Care Discharge Date/Time: 12/25/21 16:50
--- NOTE | 2021-12-25 14:44 | CT_ITS ---
STUDY: CT CERVICAL SPINE WITHOUT CONTRAST REASON FOR EXAM: Male, 66 years old. Neck pain following a fall. RADIATION DOSAGE (If Supplied By Facility): CTDIvol = ( 20.04 ) mGy, DLP = ( 488.71 ) mGycm TECHNIQUE: High resolution transaxial imaging was performed without contrast material. Sagittal and coronal images were reconstructed. Individualized dose optimization techniques were used for this CT. COMPARISON: None FINDINGS: Normal craniovertebral junction. There are degenerative changes of the anterior atlantoaxial articulation. Normal odontoid process. There is straightening of the normal cervical lordosis. Normal vertebral bodies and posterior osseous elements. C2-3: Normal endplates. Normal disc height and morphology. Normal central canal and intervertebral neuroforamina. C3-4: Normal endplates. Normal disc height and morphology. Normal central canal and intervertebral neuroforamina. C4-5: Normal endplates. Normal disc height and morphology. Normal central canal and intervertebral neuroforamina. C5-6: Mild degree of disc space narrowing. No evidence of disc herniation. C6-7: Moderate degree of disc space narrowing. Uncovertebral arthrosis. Mild degree of bilateral neural foraminal stenosis. C7-T1: Normal endplates. Normal disc height and morphology. Normal central canal and intervertebral neuroforamina. Normal visualized soft tissue structures. CT/Spine Cervical without Contras IMPRESSION: Multilevel degenerative changes, as described above. Straightening of the normal cervical lordosis. Electronically Signed: Gage Hernandez MD at 15:22 EST ,
--- NOTE | 2021-12-25 14:44 | CT_ITS ---
STUDY: CT BRAIN WITHOUT CONTRAST REASON FOR EXAM: Male, 66 years old. Head injury due to a fall. RADIATION DOSAGE (If Supplied By Facility): CTDIvol = ( 47.06 ) mGy, DLP = ( 890.33 ) mGycm TECHNIQUE: Transaxial CT imaging of the brain was performed without administration of intravenous contrast material. Individualized dose optimization techniques were used for this CT. COMPARISON: No relevant priors. FINDINGS: Normal soft tissue structures. Normal calvarium. There is disproportionate enlargement of the lateral and third ventricles, as compared to the extra-axial spaces. The findings suggest normal pressure hydrocephalus (NPH). There is evidence of a cavum septum lucidum. Normal white matter tracts of the cerebral hemispheres. Normal basal ganglia and thalami. Normal brainstem. Normal cerebellum. There is no intracranial hemorrhage. There are no findings of an acute ischemic infarction. Atherosclerotic calcification of the cavernous portions of the internal carotid arteries bilaterally. Partial opacification of the ethmoid sinuses bilaterally. CT/Brain/Head without Contrast IMPRESSION: Chronic involutional changes of the brain. Findings suggestive of a normal pressure hydrocephalus. Electronically Signed: Gage Hernandez MD at 15:20 EST ,
== END 2021-12-25 16:50 | disposition home or self-care (01) ==
PROVIDERS: Emergency Provider Student in an Organized Health Care Education/Training Program; PCP Family Medicine; Visit Provider Student in an Organized Health Care Education/Training Program
DX: S09.90XA Unspecified injury of head, initial encounter (principal); S16.1XXA Strain of muscle, fascia and tendon at neck level, initial encounter; Y92.512 Supermarket, store or market as the place of occurrence of the external cause; R11.0 Nausea; W01.0XXA Fall on same level from slipping, tripping and stumbling without subsequent striking against object, initial encounter
CPT/HCPCS: 70450; 72125; 99282

== ENCOUNTER 2022-01-03 09:43 | Outpatient (CLI) | payer MEDICARE, SELFPAY ==
--- NOTE | 2022-01-03 09:49 | ECHOD_ITS ---
Reason For Study: CARDIOMYOPATHY Procedure This was a 2D Doppler, Color Flow transthoracic echocardiogram. The study was technically difficult. Exam performed in department. Left Ventricle Based upon the 2D echocardiographic images obtained there appears to be grossly normal left ventricular size, wall motion, and systolic function. The estimated ejection fraction is 55 %. No evidence for diastolic dysfunction. Right Ventricle Normal RV size. Normal systolic function. Atria Normal left atrium. Normal right atrium. No doppler evidence for ASD. Mitral Valve There is no mitral annular calcification. Normal mitral valve. Tricuspid Valve Normal tricuspid valve. Aortic Valve Trisinus/trileaflet aortic valve. Normal aortic valve. Trivial aortic valve insufficiency. Pulmonic Valve The pulmonic valve is not well visualized. Trivial pulmonic valve insufficiency. Great Vessels The ascending aorta is mildly dilated. Pericardium/Pleural No pericardial effusion. MMode/2D Measurements & Calculations LVIDd: 4.8 cm IVSd: 1.0 cm Ao root diam: 4.0 cm LVIDs: 3.0 cm LVPWd: 1.0 cm RVDd: 3.0 cm FS: 38.4 % LAV(MOD-bp): 33.7 ml LVAd ap4: 21.8 cm2 LVAd ap2: 25.8 cm2 LAV(MOD-bp) Indexed: 15.8 ml/m2 LVLd ap4: 6.5 cm LVLd ap2: 7.1 cm LAV(MOD-sp2): 27.5 ml EDV(MOD-sp4): 62.7 ml EDV(MOD-sp2): 80.0 ml LAV(MOD-sp4): 34.1 ml EDV(sp4-el): 62.6 ml EDV(sp2-el): 80.1 ml LVAs ap4: 12.2 cm2 LVAs ap2: 14.2 cm2 LVLs ap4: 5.5 cm LVLs ap2: 5.8 cm ESV(MOD-sp4): 22.8 ml ESV(MOD-sp2): 29.7 ml ESV(sp4-el): 22.9 ml ESV(sp2-el): 29.8 ml EF(MOD-sp4): 63.6 % EF(MOD-sp2): 62.9 % EF(sp4-el): 63.5 % SV(MOD-sp4): 39.8 ml SV(MOD-sp2): 50.3 ml SV(sp4-el): 39.7 ml LA dimension(2D): 3.1 cm LA A4 area: 15.0 cm2 RA A4 area: 11.5 cm2 Time Measurements MV dec time: 0.27 sec Doppler Measurements & Calculations MV E max tunde: 50.7 cm/sec Lat Peak E' Tunde: 7.2 cm/sec Med Peak E' Tunde: 5.0 cm/sec MV A max tunde: 59.9 cm/sec E/E' lat: 7.0 E/E' med: 10.1 MV E/A: 0.85 Ao V2 max: 100.0 cm/sec LV V1 max: 82.8 cm/sec PA V2 max: 93.5 cm/sec Ao max P.0 mmHg LV V1 max P.7 mmHg ECHO/Echo Complete Interpretation Summary The study was technically difficult. Based upon the 2D echocardiographic images obtained there appears to be grossly normal left ventricular size, wall motion, and systolic function. The estimated ejection fraction is 55 %. Trivial aortic valve insufficiency. Trivial pulmonic valve insufficiency. The ascending aorta is mildly dilated. No evidence for diastolic dysfunction. Ordering Physician: Rafael Jones Referring Physician: Isak Hernandez Performed By: Mulu Kwon, RDCS, RVT
== END 2022-01-03 23:59 | disposition home or self-care (01) ==
PROVIDERS: PCP Family Medicine; Referring Provider Internal Medicine Cardiovascular Disease; Visit Provider Internal Medicine Cardiovascular Disease
DX: G71.11 Myotonic muscular dystrophy (principal); I43 Cardiomyopathy in diseases classified elsewhere; I35.9 Nonrheumatic aortic valve disorder, unspecified; I44.7 Left bundle-branch block, unspecified
CPT/HCPCS: 93306

== ENCOUNTER 2022-03-01 09:27 | Outpatient (CLI) | payer MEDICARE, SELFPAY ==
[2022-03-01 12:03] LABS: Hematocrit 46.4 % (40-54); Hemoglobin 16.1 g/dL (13.0-16.5); Mean Corp Hgb Conc 34.7 g/dL (32-36); Mean Corpuscular Hgb 33.1 pg (27.0-32.0); Mean Corpuscular Volume 95.5 fL (80-94); Mean Platelet Vol. 10.6 fl (6.2-12.0); Platelet Count 249 K/mm3 (150-450); RBC Distribution Width CV 13.3 % (11.6-14.6); RBC Distribution Width SD 47.5 fl (35.1-43.9); Red Blood Count 4.86 M/mm3 (4.6-6.2); White Blood Count 5.9 K/mm3 (4.4-11.0)
[2022-03-01 12:28] LABS: Vitamin B12 163 pg/mL (211-911)
[2022-03-01 12:44] LABS: AST(SGOT) 27 U/L (15-37); Alanine Aminotransfer ALT/SGPT 34 U/L (16-61); Albumin, Serum 3.5 g/dL (3.2-5.0); Alkaline Phosphatase 85 U/L (45-117); Anion Gap 5 (5-15); BUN 10 mg/dL (7-18); BUN/Creat Ratio 11.4 RATIO (10-20); Calcium,Total 9.3 mg/dL (8.5-10.1); Chloride 112 mmol/L (98-107); Creatinine, Serum 0.88 mg/dL (0.70-1.30); EST Glomerular Filtration Rate 92 mL/min (>60); Est Glom Filt Rate - Afr Amer 112 mL/min (>60); Globulin 3.6 g/dL (2.2-4.2); Glucose 85 mg/dL (74-106); Protein, Total 7.1 g/dL (6.4-8.2); Sodium Level 142 mmol/L (136-145); Thyroid Stim Hormone (TSH) 1.89 uIU/mL (0.358-3.74)
[2022-03-13 10:09] LABS: Free Kappa Light Chains 23.1 mg/L (3.3-19.4); Free Lambda Light Chains 22.2 mg/L (5.7-26.3)
[2022-03-14 10:22] LABS: Vitamin B1, Thiamine 142.9 nmol/L (66.5-200.0)
== END 2022-03-01 23:59 | disposition home or self-care (01) ==
LOC: MTLAB 09:28
PROVIDERS: PCP Family Medicine; Referring Provider Psychiatry & Neurology Neurology; Visit Provider Psychiatry & Neurology Neurology
DX: G31.84 Mild cognitive impairment of uncertain or unknown etiology (principal)
CPT/HCPCS: 36415; 80053; 82607; 82746; 83883; 84425; 84443; 85027

== ENCOUNTER → 2022-03-14 | Outpatient (CLI) | payer MEDICARE, SELFPAY ==
--- NOTE | 2022-03-14 14:59 | SP.MBSS_ITS ---
Modified Barium Swallow - Patient Information Study Date: 03/14/22 Study Time: 13:00 Direct Billable Minutes: 130 Total Minutes procedure & reportin Diagnosis: Myotonic dystrophy (G71.11), Dysphagia (R13.10) Referring Physician: Javier Huang Reason for Referral: Objectively assess swallow function, risk for aspiration, and determine recommendations for least restrictive diet textures and compensatory strategies to improve safety of swallow. Medical History: The patient is a 67-year-old male. Pt's present, and she provided CAT WAGON OPERATOR majority of information regarding swallowing difficulty. He has had increased difficulty swallowing in the past year, which is characterized by vomiting of foods, occasional sensation of food becoming stuck, and some coughing with food and drink. The patient has most difficulty with foods, such as tough meats. He was referred for MBS study from neurologist to address dysphagia. Past medical history: Myotonic dystrophy, Aortic valve disorder, Cardiomyopathy in disease classified elsewhere, History of colon polyps, History of pneumonia (~5 years ago following bronchitis per pt's ), Hx of cataract, LBBB (left bundle branch block), Myotonia. Current Diet Ordered: Soft solids / Thin liquids Dentition: WNL - Some dental implants Mental Status: Impaired - Mild cognitive impairment per neurology visit 03/01/2022. Respiratory Status: Oxygenating on Room Air - Penetration-Aspiration Scale Penetration-Aspiration Scale: OBJECTIVE ASSESSMENT OF SWALLOW FUNCTION (QUANTITATIVE ? PER TRIAL): PENETRATION / ASPIRATION SCALE (FLORES): 1 = does not enter airway 2 = enters airway/above vocal folds/ejected 3 = enters airway/above vocal folds/not ejected 4 = enters airway/contacts vocal folds/ejected 5 = enters airway/contacts vocal folds/not ejected 6 = enters airway/below vocal folds/ejected 7 = enters airway/below vocal folds/not ejected despite effort 8 = enters airway/below vocal folds/no effort VIDEOFLOROSCOPIC SCALE SCORE (FLORES): Grade I = aspiration of material that has penetrated into the laryngeal vestibule, intact cough reflex Grade II = aspiration < 10 % of the bolus, intact cough reflex Grade III = aspiration of < 10 % of the bolus, reduced cough reflex or aspiration of > 10 % of the bolus, intact cough reflex Grade IV = aspiration of > 10 % of the bolus, reduced cough reflex - Penetration-Aspiration Scale Score Thin Liquid via teaspoon Result: 1= does not enter airway Thin Liquid via teaspoon Trial 2 Result: 1= does not enter airway Thin Liquid via small single sip from cup Result: 1= does not enter airway Thin Liquid via small single sip from cup Trial 2 Result: 1= does not enter airway Thin Liquid via sequential sips from cup Result: 3= enters airways/above vocal folds/not ejected [place] Thick Liquid via small single sip from cup Result: 5= enters airways/contacts vocal folds/not ejected - CAT WAGON OPERATOR observed penetration of previous trial reach the vocal folds. [place] thick sip also appeared to result in penetration. Honey Thick Liquid Double swallow Result: 1= does not enter airway Pudding via teaspoon with esophageal screen Result: 1= does not enter airway Cookie Result: 1= does not enter airway - Cued chin tuck after initial swallow in attempt to clear residue in the vallecula Comment: Post prandial penetration of pudding thick trial, which appears to reach below the VF prior to cued cough and reswallow. Thin Liquid via single sip from straw Result: 1= does not enter airway Thin Liquid via small single sip from cup Effortful swallow Result: 1= does not enter airway Pudding via teaspoon Effortful swallow Result: 1= does not enter airway Thin Liquid via small single sip from cup Effortful swallow Trial 2 Result: 1= does not enter airway - Oral Phase Labial Seal: Interlabial escape, no progression to anterior lip Tongue Control During Bolus Hold: Posterior escape of less than half of bolus Bolus Preparation/Mastication: Disorganized chewing/mashing with solid pieces of bolus unchewed Bolus Transport/Lingual Motion: Repetitive/disorganized tongue motion Oral Residue: Majority of bolus remaining - ~1/2 of cookie trial, piecemeal deglutition required - Pharyngeal Phase Initiation of Pharyngeal Swallow: Bolus head in pyriforms Soft Palate Elevation: No bolus between soft palate and pharyngeal wall Laryngeal Elevation: Partial superior movement thyroid cart/partial apprx aryt- epig petiole Anterior Hyoid Excursion: Partial anterior movement Epiglottic Movement: No inversion - Inconsistent epiglottic inversion Laryngeal Vestibule Closure at Height of Swallow: Incomplete; narrow column of air/contrast in laryngeal vestibule Pharyngeal Stripping Wave: Absent Tongue Base Retraction: Wide column of contrast between tongue base & post. pharyngeal wall Pharyngeal Residue: Majority of contrast within or on pharyngeal structures - Pudding and cookie trials, >1/2 of bolus remaining which improved with effortful swallow and liquid wash - Esophageal Phase Esophageal Clearance: Esophageal retention - Min retention in upper esophagus - Treatment Strategies Effects of treatment strategies attemped:: Chin tuck = little to no impact Liquid wash = somewhat effective Effortful swallow = somewhat effective Multiple swallows = somewhat effective Decreased rate = effective - Diagnosis/Impression Diagnosis: Mild-moderate oropharyngeal phase dysphagia (R13.12) Impression: The oral phase is marked by decreased, disorganized mastication. He also presents with repetitive tongue motion of lingual transport. Mild-moderate oral residues after the swallow. The pharyngeal phase is marked by mild delay initiating swallow, moderate-max oral residue after the swallow, decreased airway closure during the swallow. The patient has decreased anterior hyoid excursion and decreased laryngeal elevation with inconsistent epiglottic inversion. Moderate deficits in tongue base retraction. The patient demonstrated penetration of sequential sips of thin liquids with eventual progression to the VF in subsequent swallows without full ejection from laryngeal vestibule. He presented with laryngeal penetration of nectar thick liquids during the swallow to the VF without full ejection. Post prandial penetration of pudding thick trial to the VF on subsequent swallows. No aspiration observed during the study; however, without CAT WAGON OPERATOR cueing cough and re-swallow he would have likely aspirated the above mentioned trials. - Recommendations Diet: Thin Liquids - Soft and Bite Size Textures (IDDSI Level 6) Comment: Intermittent use of cough and re-swallow, especially if wet vocal quality. Would strongly consider smaller, more frequent meals to lessen fatigue. Compensatory Strategies: Small Bites - Effortful swallow for bites, Small Sips, Slow Rate, Alternate bites/solids and sips/liquids - 1:1 ratio, Sitting upright, Assist with verbal cues to use recommended strategies Supervision: 1:1 Close Supervision Recommend Repeat Modified Barium Swallow: Yes - Will recommend repeat MBS study at frequency of the OP speech therapist's discretion. Would consider repeat MBS study if increased concerns for aspiration with current diet or worsening respiratory status. Need for Skilled Speech Therapy Services: Yes Comment: Will recommend the patient for skilled outpatient dysphagia therapy to provide the patient and family thorough education re: recommended aspiration precautions and diet recommendations. Would recommend ongoing assessment of diet tolerance due to progressive nature of the patient's neurological disorder, myotonic dystrophy. Repeat MBS study warranted if increased concerns for aspiration with current diet or worsening respiratory status. Would consider diet downgrade of solid textures at bedside to minced and moist (IDDSI Level 5) or puree textures if concern for fatigue at meals. Would not recommend oropharyngeal strengthening. Recommended Referrals: GI Consult - Pt reports regurgitation at meals. Min retention in upper esophagus. Education Completed: 1. Described result of evaluation., 4. Family/caregivers understand evaluation & agree w/ goals & tx plan., 7. Pt requires further education on strategies & risks., 8. Family/caregivers require further education on strategies & risks. Comment: Provided the patient and pt's education in results and recommendations of MBS study. CAT WAGON OPERATOR provided written handout regarding recommended aspiration precautions, as well as information for Soft and Bite Size diet (IDDSI Level 6) preparation. CAT WAGON OPERATOR attempted to provide the pt's a follow-up phone call regarding recommendations for effortful swallow with solids only, alternate liquids and solids 1:1, and consider smaller and more frequent meals to reduce fatigue. Will not recommend oropharyngeal exercises due to pt's neurological disorder, myotonic dystrophy, being progressive in nature. Will attempt to call pt's regarding recommendations 03/15/2022. - Status Active ST Patient: Active - Contact Information [facility] Speech Therapy:: Clarita Rossi M.A. [facility]-CAT WAGON OPERATOR Speech-Language Pathologist [facility] [address] [place] [address] [phone] 03/14/22 15:14
== END | disposition home or self-care (01) ==
PROVIDERS: PCP Family Medicine; Referring Provider Psychiatry & Neurology Neurology; Visit Provider Psychiatry & Neurology Neurology
DX: R13.10 Dysphagia, unspecified (principal); G71.11 Myotonic muscular dystrophy
CPT/HCPCS: 74230; 92611

== ENCOUNTER → 2022-03-20 | Outpatient (CLI) | payer MEDICARE, SELFPAY ==
--- NOTE | 2022-03-20 17:34 | MRI_ITS ---
EXAM: MR HEAD WITHOUT AND WITH INTRAVENOUS CONTRAST CLINICAL INDICATION: mild cognitive impairment; gait d/o -- ? possible of normal pressure hydrocephalus TECHNIQUE: Multiplanar and multisequence MR images of the brain were obtained without and with intravenous contrast. This report was created using [employer] report generation technology. CONTRAST: IV 18mL DOTAREM COMPARISON: None. FINDINGS: ARTIFACTS: Moderate motion artifacts. BRAIN AND EXTRA-AXIAL SPACES: No restricted diffusion. No evidence of acute CVA. Moderate cerebral volume loss. Mild deep periventricular high signal chronic white matter changes on inversion recovery images. No intra- or extra-axial hemorrhage. No evidence of acute infarct. No intracranial mass or mass effect. There is preservation of the [place]/white matter interface. Posterior fossa structures are unremarkable. No hydrocephalus. Basal cisterns are patent. SELLA: Unremarkable. Normal sella turcica, pituitary gland, infundibular stalk, optic chiasm and hypothalamus. AUDITORY SYSTEM: Unremarkable. The internal auditory canals are patent. BONES/JOINTS: Unremarkable. No discrete lytic or blastic abnormalities. SINUSES: Mild mucosal thickening in multiple ethmoid air cells. MASTOID AIR CELLS: Unremarkable as visualized. Clear. ORBITS: Unremarkable as visualized. Both globes, extraocular muscles, optic nerves and retrobulbar fat appear unremarkable. VASCULATURE: Patent signal voids of distal vertebral arteries and ICAs. MRI/Brain W/WO Contrast IMPRESSION: Moderate chronic changes. Motion. No acute intracranial abnormality. Mild chronic ethmoid sinusitis. No obvious evidence of normal pressure hydrocephalus, the ventriculomegaly appears proportionate to the advanced volume loss. Electronically Signed: Mihaela Ramírez MD at 7:37 EDT ,
== END | disposition home or self-care (01) ==
LOC: MRI 17:33
PROVIDERS: PCP Family Medicine; Visit Provider Psychiatry & Neurology Neurology
DX: G31.84 Mild cognitive impairment of uncertain or unknown etiology (principal)
CPT/HCPCS: 70553; A9575

== ENCOUNTER → 2022-04-02 | Outpatient (CLI) | payer MEDICARE, SELFPAY | END | disposition home or self-care (01) | LOC: MTLAB 15:41 | PROVIDERS: PCP Family Medicine; Referring Provider Psychiatry & Neurology Neurology; Visit Provider Psychiatry & Neurology Neurology | DX: G62.9 Polyneuropathy, unspecified (principal); E53.8 Deficiency of other specified B group vitamins | CPT/HCPCS: 36415; 82784; 84165; 86334; 86335; 86340 ==

== ENCOUNTER → 2022-04-12 | Outpatient (CLI) | payer MEDICARE, SELFPAY ==
[2022-04-19 08:20] LABS: Intrinsic Factor Ab 1.1 AU/mL (0.0-1.1)
== END | disposition home or self-care (01) ==
LOC: LAB.FUTURE 13:10 → LAB 13:14
PROVIDERS: PCP Family Medicine; Visit Provider Psychiatry & Neurology Neurology
DX: G62.9 Polyneuropathy, unspecified (principal); E53.8 Deficiency of other specified B group vitamins
CPT/HCPCS: 86340

== ENCOUNTER 2022-10-12 08:18 | Day surgery (SDC) | payer MEDICARE, SELFPAY ==
[2022-10-12] VITALS (8 sets, daily range): BP systolic 95–109; BP diastolic 66–81; PULSE 62–96; RESP 16–18; TEMP 36.4–37; O2SAT 92–99; BMI 29.5
[2022-10-12] MEDS: Lactated Ringers 1,000 ML 15 ML IV (08:51)
--- NOTE | 2022-10-12 09:35 | HP.PCM_ITS ---
History and Physical Date of Admission: 10/12/22 Intake Vital Signs ? 09/26/2209:26 Height 5 ft 10 in Weight: 205 lb BMI 29.4 BP 121/82 H Blood Pressure Location Lt brachial Position Sitting Respiration 18 Intake Visit Reasons:?3 YEAR RECALL CSCOPE Chief Complaint: ? c-scope [employer] Required: No Is patient in pain?: No Allergies lisinopril Adverse Reaction (Unknown, Verified 09/26/22 09:26) Cough Medications ascorbic acid (vitamin C) 500 mg tablet 500 mg PO DAILY 11/21/21 [History Confirmed 09/26/22] cholecalciferol (vitamin D3) 100 mcg (4,000 unit) tablet 100 mcg PO DAILY 11/21/21 [History Confirmed 09/26/22] carvedilol 3.125 mg tablet 3.125 mg PO BID #180 tabs 11/30/21 [Rx Confirmed 09/26/22] losartan 25 mg tablet 25 mg PO DAILY #90 tabs 11/30/21 [Rx Confirmed 09/26/22] magnesium 250 mg tablet 250 mg PO DAILY 03/01/22 [History Confirmed 09/26/22] folic acid 1 mg tablet 1 mg PO DAILY #30 tabs 03/04/22 [Rx Confirmed 09/26/22] lactobacillus combination no.9 4 billion cell capsule (Adult 50 Plus Probiotic) 4,000 mmu cells PO DAILY 08/30/22 [History Confirmed 09/26/22] PFSH Medical History?(Updated 09/26/22 @ 10:[address] Julio Vaughn MD) Aortic valve disorder Aspiration pneumonia (~08/05/22) Cardiomyopathy in disease classified elsewhere Family history of colon cancer in father History of colon polyps History of pneumonia Hx of cataract LBBB (left bundle branch block) Myotonia Myotonic dystrophy Surgical History? History of bilateral cataract extraction Family History? Mother Heart disease Social History? Smoking Status:? Never smoker second hand exposure:? No alcohol intake:? current alcohol intake frequency: a few times a week substance use type:? does not use caffeine:? No mikaela/zoroastrian:? Moravian seatbelt use:? always HPI HPI HPI: Patient is a 67-year-old male here for colonoscopy.? He had a last colonoscopy in 2017.? Patient has small hyperplastic polyp at that time.? He denies any abdominal pain or blood in the stool. ROS General General: Yes weight change and fatigue; No appetite, colon cancer, breast cancer or weakness HEENT HEENT: Yes difficulty swallowing; No eye injury, eye surgery, swollen glands or hoarseness Endo Endocrine: No thyroid disease, diabetes mellitus, thyroid cancer, Hair loss, heat intolerance or cold intolerance Skin Skin: No rash or changing moles Breast Breast: No left breast lump, right breast lump, nipple discharge, breast pain, abnormal mammogram, abnormal US or breast enlargement Musc Musculoskeletal: No back problems, arthritis, rheumatoid arthritis, gout or joint pain Cardio Cardiovascular: No murmur, pacemaker, heart disease, atrial fibrillation, high blood pressure, heart attack, heart stent, palpitations, shortness of breat with exertion or chest pain Psych Psychiatric: No depression, anxiety or hearing voices Resp Respiratory: No shortness of breath, No sleep apnea, Yes cough, No COPD, No asthma, No emphysema and No wheezing Gastro Gastrointestinal: No abdominal pain, No nausea or vomiting, Yes diarrhea, Yes constipation, No blood in stool, No acid reflux, No hemorrhoids, No ulcers, No gallbladder problem and No black,tarry stools Sorin Hematologic: No blood thinners, No blood disorders, No bleeding, No anemia and No blood clots Neuro Neurologic: No system reviewed and no additional complaints, except as documented, No as per HPI, No abnormal gait, No abnormal hearing, No abnormal movements, No abnormal speech, No behavioral changes, No burning sensations, No confusion, No convulsions, No disequilibrium, No dizziness, No localized weakness, No frequent falls, No headache(s), No lack of coordination, No loss of vision, No memory loss, No numbness, No other visual disturbances, No radicular pain, No restless legs, No sensory deficit, No syncope, No tingling, No tremor(s), No weakness and No other Exam Const General: cooperative Orientation: alert and oriented x3 HENMT Head: normal to inspection Neck Neck: normal visual inspection and full ROM Chest Chest palpation & inspection: normal inspection of the chest Resp Effort & Inspection: normal respiratory effort Auscultation: clear to auscultation bilaterally Cardio Rate: regular rate Rhythm: regular rhythm GI Inspection: non-distended Palpation: soft and nontender Skin General: no rashes or lesions noted Neuro General: patient alert and patient oriented x3 Extrem General: full ROM Psych Appearance: grossly normal Mental Status: mental status grossly normal Assessment and Plan Assessment and Plan (1) Family history of colon cancer in father: ?Status:?Acute ?Plan: Patient has a family history of colon cancer in his father and requires colonoscopy every 5 years.? He is now due for one.? I explained endoscopy in detail to the patient.? I explained the risks including but not limited to stroke or heart attack with anesthesia, perforation of the GI tract, bleeding, infection.? I explained that any of these could necessitate further emergency surgery.? The patient understands and all questions were an swered sufficiently.? The patient wishes to proceed with procedure. Julio Vaughn MD Pager: [facility] [address] [place] [address], [address] [place] [address] Office: I have examined the patient and the H&P has been reviewed. There are no clinical changes since date of exam.
--- NOTE | 2022-10-12 10:03 | OP.CCLET_ITS ---
10/12/2022 Isak Hernandez Re : Colonoscopy procedure for Jayce Bowling Dear Mary This procedure was performed on Wednesday, October 12, 2022. My impressions and recommendations are as follows: Impressions : - The entire examined colon is normal on direct and retroflexion views. - No specimens collected. Recommendations : - Discharge patient to home. - Resume previous diet. - Continue present medications. - Repeat colonoscopy in 5 years for screening purposes. My findings are described in the full procedure note, which is enclosed. If I can be of further assistance, please feel free to contact me at Doctor phone number(s): , Work: . Sincerely, Julio Vaughn MD 10/12/2022 10:02:42 AM This report has been signed electronically.
--- NOTE | 2022-10-12 10:03 | OP.COLON_ITS ---
Patient Name: Jayce Bowling Procedure Date: 10/12/2022 9:38 AM Date of : 1955 Age: 67 Procedure: Colonoscopy Indications: Colon cancer screening in patient at increased risk: Colorectal cancer in father Providers: Julio Vaughn MD Referring MD: Julio Vaughn MD Medicines: Propofol per Anesthesia Patient Profile: This is a 67 year old male. Refer to note in patient chart for documentation of history and physical. Last Colonoscopy: 5 years ago. Complications: No immediate complications. Procedure: Pre-Anesthesia Assessment: - Prior to the procedure, a History and Physical was performed, and patient medications and allergies were reviewed. The patient's tolerance of previous anesthesia was also reviewed. The risks and benefits of the procedure and the sedation options and risks were discussed with the patient. All questions were answered, and informed consent was obtained. Prior Anticoagulants: The patient has taken no previous anticoagulant or antiplatelet agents. After reviewing the risks and benefits, the patient was deemed in satisfactory condition to undergo the procedure. After I obtained informed consent, the scope was passed under direct vision. Throughout the procedure, the patient's blood pressure, pulse, and oxygen saturations were monitored continuously. The pediatric colonoscope was introduced through the anus and advanced to the cecum, identified by appendiceal orifice and ileocecal valve. The colonoscopy was performed without difficulty. The patient tolerated the procedure well. The quality of the bowel preparation was good. Scope In: 9:45:15 AM Scope Withdrawal Time 0 hours 5 minutes 37 seconds Scope Out: 9:58:03 AM Total Procedure Duration Time 0 hours 12 minutes 48 seconds Findings: The entire examined colon appeared normal on direct and retroflexion views. Impression: - The entire examined colon is normal on direct and retroflexion views. - No specimens collected. Recommendation: - Discharge patient to home. - Resume previous diet. - Continue present medications. - Repeat colonoscopy in 5 years for screening purposes. Procedure Code(s): --- Professional --- 82860, Colonoscopy, flexible; diagnostic, including collection of specimen(s) by brushing or washing, when performed (separate procedure) Diagnosis Code(s): --- Professional --- Z80.0, Family history of malignant neoplasm of digestive organs CPT copyright 2017 [employer]. All rights reserved. The codes documented in this report are preliminary and upon advertising consultant review may be revised to meet current compliance requirements. Julio Vaughn MD 10/12/2022 10:02:42 AM This report has been signed electronically. Number of Addenda: 0 Note Initiated On: 10/12/2022 9:38 AM
== END 2022-10-12 11:10 | disposition home or self-care (01) ==
LOC: EN 08:20 → AC 08:21
PROVIDERS: PCP Family Medicine; Referring Provider Family Medicine; Visit Provider Surgery
PROC: 0DJD8ZZ Inspection of Lower Intestinal Tract, Via Natural or Artificial Opening Endoscopic (ICD-10-PCS; CPT 45378; principal; 2022-10-12 09:25)
DX: Z12.11 Encounter for screening for malignant neoplasm of colon (principal); Z80.0 Family history of malignant neoplasm of digestive organs; Z86.010 Personal history of colon polyps
CPT/HCPCS: 45378; J7120; J2405

== ENCOUNTER → 2022-10-30 | Outpatient (CLI) | payer MEDICARE, SELFPAY ==
--- NOTE | 2022-10-30 13:54 | ECHOL_ITS ---
Reason For Study: CMP, Assess LV function Procedure This was a limited 2D transthoracic echocardiogram. The study was technically difficult. Limited views were obtained. Exam performed in department. Left Ventricle Normal LV size. Apical false tendon noted. Based upon the 2D echocardiographic images obtained, when the patient appears to be in sinus rhythm without ventricular ectopy the left ventricle appears demonstrate grossly normal left ventricular size, wall motion, and systolic function with an estimated LVEF 55%, however, when the patient demonstrates findings of underlying ventricular ectopy then the left ventricle appears to demonstrate mild global left ventricular systolic dysfunction with an estimated LVEF of 45%. Septal motion consistent with IVCD. Right Ventricle Normal RV size. Normal systolic function. Mitral Valve There is no mitral annular calcification. Normal mitral valve. Tricuspid Valve Normal tricuspid valve. Aortic Valve Trisinus/trileaflet aortic valve. Normal aortic valve. Pulmonic Valve The pulmonic valve is not well visualized. Great Vessels Normal sized aortic root. Pericardium/Pleural No pericardial effusion. Epicardial fat. MMode/2D Measurements & Calculations LVIDd: 4.6 cm IVSd: 0.98 cm Ao root diam: 3.7 cm LVIDs: 2.7 cm LVPWd: 1.1 cm FS: 42.0 % LVAd ap4: 23.8 cm2 LVAd ap2: 26.0 cm2 SV(MOD-sp4): 31.6 ml LVLd ap4: 7.2 cm LVLd ap2: 7.5 cm EDV(MOD-sp4): 67.5 ml EDV(MOD-sp2): 78.1 ml EDV(sp4-el): 66.5 ml EDV(sp2-el): 76.3 ml LVAs ap4: 15.3 cm2 LVAs ap2: 14.1 cm2 LVLs ap4: 5.9 cm LVLs ap2: 6.1 cm ESV(MOD-sp4): 35.9 ml ESV(MOD-sp2): 28.7 ml ESV(sp4-el): 33.6 ml ESV(sp2-el): 27.6 ml EF(MOD-sp4): 46.8 % EF(MOD-sp2): 63.2 % EF(sp4-el): 49.4 % SV(MOD-sp2): 49.4 ml SV(sp4-el): 32.8 ml LA dimension(2D): 2.9 cm ECHO/Echo, Limited Study Interpretation Summary The study was technically difficult. Limited views were obtained. Based upon the 2D echocardiographic images obtained, when the patient appears t o be in sinus rhythm without ventricular ectopy the left ventricle appears demonstrate grossly kemi l left ventricular size, wall motion, and systolic function with an estimated LVEF 55%, however, w hen the patient demonstrates findings of underlying ventricular ectopy then the left ventricle appears to demonstrate mild global left ventricular systolic dysfunction with an estimated LVEF of 45%. Septal motion consistent with IVCD. Epicardial fat. Ordering Physician: Rafael Jones Referring Physician: Isak Hernandez Performed By: Carrie Molina RDCS
== END | disposition home or self-care (01) ==
LOC: CVS 13:54
PROVIDERS: PCP Family Medicine; Referring Provider Nurse Practitioner Family; Visit Provider Nurse Practitioner Family
DX: R06.02 Shortness of breath (principal); I43 Cardiomyopathy in diseases classified elsewhere; I50.9 Heart failure, unspecified; I44.7 Left bundle-branch block, unspecified; I35.9 Nonrheumatic aortic valve disorder, unspecified
CPT/HCPCS: 93308

== ENCOUNTER → 2023-01-25 | Outpatient (CLI) | payer MEDICARE, SELFPAY ==
--- NOTE | 2023-01-25 11:26 | MRI_ITS ---
EXAM: MR HEAD WITHOUT AND WITH INTRAVENOUS CONTRAST, INTERNAL AUDITORY CANAL PROTOCOL CLINICAL INDICATION: SUDDEN R HEARING LOSS TECHNIQUE: Multiplanar and multisequence MR images of the internal auditory canal were obtained without and with intravenous contrast. This report was created using [employer] report [employer] technology. CONTRAST: IV DOTAREM 19CC. COMPARISON: 03/20/2022. FINDINGS: CRANIAL NERVES: Unremarkable. No mass. No abnormal enhancement. COCHLEA AND SEMICIRCULAR CANALS: Unremarkable. CEREBELLOPONTINE ANGLES: Unremarkable. No mass. BRAIN AND EXTRA-AXIAL SPACES: Abnormal T2 signal in the deep cerebral white matter is consistent with small vessel ischemic/degenerative changes. The cerebral and cerebellar sulci are prominent consistent with brain atrophy. No intra- or extra-axial hemorrhage. No intracranial mass or mass effect. Basal cisterns are patent. BONES/JOINTS: Unremarkable. No discrete lytic or blastic abnormalities. SINUSES: Unremarkable as visualized. Clear. MASTOID AIR CELLS: Unremarkable as visualized. Clear. ORBITS: Unremarkable as visualized. Both globes, extraocular muscles, optic nerves and retrobulbar fat appear unremarkable. MRI/Brain W/WO Contrast IMPRESSION: 1. Chronic vessel ischemic/degenerative changes. 2. Relatively severe cerebral and cerebellar atrophy similar to the prior exam. 3. No cerebellopontine angle mass is identified. Electronically Signed: Jerome Meng MD at 2:52 EST ,
[2023-01-25 11:55] LABS: CREATININE FINGERSTICK < 0.9 mg/dL (0.70-1.30); EGFR FINGERSTICK > 60.0000 mL/min (>60)
== END | disposition home or self-care (01) ==
PROVIDERS: PCP Family Medicine; Referring Provider Otolaryngology Otolaryngology/Facial Plastic Surgery; Visit Provider Otolaryngology Otolaryngology/Facial Plastic Surgery
DX: H91.23 Sudden idiopathic hearing loss, bilateral (principal)
CPT/HCPCS: 70553; A9575

== ENCOUNTER → 2023-05-13 | Outpatient (CLI) | payer MEDICARE, SELFPAY ==
--- NOTE | 2023-05-13 13:46 | ST.MBS ---
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 Medical History: The patient is a 68-year-old male. Patient familiar to this COMMUNITY EDUCATOR. He participated in MBSS 03/14/2022, which revealed mild-moderate oropharyngeal dysphagia and recommended soft and bite size textures / thin liquids with use of aspiration precautions and follow-up OP speech therapy for oropharyngeal strengthening. Per , he refused outpatient speech therapy. Pt's provided the COMMUNITY EDUCATOR with a majority of information regarding his swallowing difficulty. He eats most solids without difficulty and avoids only tough foods, such as steak. He does have occasional coughing when eating and drinking. No history of choking per and patient. Patient denies swallowing difficulty. He was referred for MBS study from his neurologist to re-assess concerns for dysphagia. 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 Current Diet Ordered: Regular textures w/ soft meats / Thin liquids Dentition: WNL - some dental implants Mental Status: Impaired - hx of mild cognitive impairment Respiratory Status: Oxygenating on Room Air - Penetration-Aspiration Scale Penetration-Aspiration Scale: OBJECTIVE ASSESSMENT OF SWALLOW FUNCTION (QUANTITATIVE ? PER TRIAL): PENETRATION / ASPIRATION SCALE (FLORES): 1 = does not enter airway 2 = enters airway/above vocal folds/ejected 3 = enters airway/above vocal folds/not ejected 4 = enters airway/contacts vocal folds/ejected 5 = enters airway/contacts vocal folds/not ejected 6 = enters airway/below vocal folds/ejected 7 = enters airway/below vocal folds/not ejected despite effort 8 = enters airway/below vocal folds/no effort VIDEOFLOROSCOPIC SCALE SCORE (FLORES): Grade I = aspiration of material that has penetrated into the laryngeal vestibule, intact cough reflex Grade II = aspiration < 10 % of the bolus, intact cough reflex Grade III = aspiration of < 10 % of the bolus, reduced cough reflex or aspiration of > 10 % of the bolus, intact cough reflex Grade IV = aspiration of > 10 % of the bolus, reduced cough reflex - Penetration-Aspiration Scale Score Thin Liquid via teaspoon Result: 8= enters airway/below vocal folds/no effort - trace, delayed throat clear Thin Liquid via teaspoon Trial 2 Result: 1= does not enter airway Thin Liquid via small single sip from cup Result: 2= enter airway/above vocal folds/ejected Thin Liquid via large single sip from cup Result: 1= does not enter airway [place] Thick Liquid via small single sip from cup Result: 1= does not enter airway Comment: COMMUNITY EDUCATOR cued chin tuck after the swallow to attempt clearing vallecular residues. Chin tuck = somewhat effective in clearing vallecular residue; however, it ultimately resulted in laryngeal penetration of nectar thick residue to the vocal folds after the swallow. Pudding via teaspoon with esophageal screen Result: 1= does not enter airway Comment: Laryngeal penetration of residues of previous trial reached the vocal folds. COMMUNITY EDUCATOR cued cough and re-swallow after the trial was completed. Cough was effective in clearing penetrated contrast from the laryngeal vestibule. Thin Liquid via small single sip from cup Trial 2 Result: 3= enters airways/above vocal folds/not ejected - trace 1/4 Cookie Result: 1= does not enter airway Thin Liquid via sequential sips from straw Result: 1= does not enter airway - Oral Phase Labial Seal: No Labial Escape Tongue Control During Bolus Hold: Posterior escape of less than half of bolus Bolus Preparation/Mastication: Slow prolonged chewing/mashing with complete recollection Bolus Transport/Lingual Motion: Slowed tongue motion Oral Residue: Majority of bolus remaining - ~50% of pudding, patient mostly cleared with independent use of second swallow - Pharyngeal Phase Initiation of Pharyngeal Swallow: Bolus head at posterior laryngeal surgace of epiglottis Soft Palate Elevation: Trace column of contrast/air between soft palate and pharyngeal wall Laryngeal Elevation: Partial superior movement thyroid cart/partial apprx aryt-epig petiole Anterior Hyoid Excursion: Partial anterior movement Epiglottic Movement: No inversion - Inconsistent - at times complete inversion, other times no inversion Laryngeal Vestibule Closure at Height of Swallow: Incomplete; narrow column of air/contrast in laryngeal vestibule Pharyngeal Stripping Wave: Present - diminished - minimal Pharyngoesophageal Segment Opening: Minimal distension and minimal duration; marked obstruction of flow - inconsistently demonstrated adequate and timely opening of UES Tongue Base Retraction: Wide column of contrast between tongue base & post. pharyngeal wall Pharyngeal Residue: Majority of contrast within or on pharyngeal structures - >50% of pudding and chewed cookie in the vallecula and pyriform sinuses after the first swallow, second swallow somewhat cleared - Treatment Strategies Effects of treatment strategies attemped:: chin tuck = not recommended effortful swallow = not effective multiple swallows = somewhat effective liquid wash = somewhat effective - Diagnosis/Impression Diagnosis: Moderate oropharyngeal phase dysphagia (R13.12) Impression: The oral phase is primarily marked by... -Prolonged, but adequate mastication of regular textured cookie. -Moderate oral residue of pudding, which patient mostly cleared with use of second swallow. -Decreased bolus control with premature posterior loss of <1/2 of thin by tsp to the posterior surface of the epiglottis prior to swallow onset. The pharyngeal phase is primarily marked by... -Decreased pharyngeal contraction with minimal to no pharyngeal stripping wave, severely decreased tongue base retraction, and decreased UES opening/duration - at times UES opening/duration was minimal and at times it allowed a majority of the bolus to clear. -Moderate pharyngeal residues of liquids and severe pharyngeal residues of pudding and cookie. Liquid wash was most effective in clearing pharyngeal residues of cookie and pudding. SEE strategies attempted in the PAS score section above. -Trace silent aspiration of thin liquids via tsp. Trace laryngeal penetration of thin liquids via cup that did not fully eject from the laryngeal vestibule after the swallow. Laryngeal penetration of nectar/mildly thick liquids after the swallow to the vocal folds. Cued cough cleared the contrast from the vocal folds. - Recommendations Diet: Thin Liquids - Soft and bite size textures (IDDSI Level 6) Comment: Intermittent cough and re-swallow throughout meals (~every 4-5 bites/sips), Oral care before and after meals Compensatory Strategies: Small Bites, Small Sips, Slow Rate, Alternate bites/solids and sips/liquids - 1:1 ratio, Sitting upright, Assist with verbal cues to use recommended strategies Supervision: 1:1 Close Supervision Recommend Repeat Modified Barium Swallow: Yes Comment: Repeat MBSS if increased s/s of aspiration despite use of strategies to improve safety of swallow. Will recommend minimum of yearly MBSS or FEES to monitor swallow function and aspiration risk given progressive nature of diagnosis of myotonic dystrophy. Need for Skilled Speech Therapy Services: Yes Comment: Will recommend the patient for outpatient dysphagia therapy to provide the patient and family thorough education re: recommended aspiration precautions and diet recommendations. Would recommend ongoing assessment of diet tolerance due to progressive nature of the patient's neurological disorder, myotonic dystrophy. Repeat MBSS warranted if increased concerns for aspiration with current diet or worsening respiratory status. Would consider diet downgrade of solid textures at bedside to minced and moist (IDDSI Level 5) or puree textures if concern for fatigue at meals. Would consider the patient for participation in EMST to improve maximum inspiratory pressure and hyoid displacement during swallowing. Education Completed: 1. Described result of evaluation., 4. Family/caregivers understand evaluation & agree w/ goals & tx plan., 7. Pt requires further education on strategies & risks. - Status Active ST Patient: Active - Contact Information [facility] Speech Therapy:: Clarita Rossi M.A. [facility]-COMMUNITY EDUCATOR Speech-Language Pathologist [facility] [address] [place] [address] [phone] 05/13/23 13:49
== END | disposition home or self-care (01) ==
LOC: RAD 12:38
PROVIDERS: PCP Family Medicine; Referring Provider Psychiatry & Neurology Neurology; Visit Provider Psychiatry & Neurology Neurology
DX: R13.10 Dysphagia, unspecified (principal); G71.11 Myotonic muscular dystrophy; Z87.01 Personal history of pneumonia (recurrent)
CPT/HCPCS: 74230; 92611

== ENCOUNTER → 2023-06-04 | Outpatient (CLI) | payer MEDICARE, SELFPAY ==
[2023-06-04 12:27] LABS: Absolute Lymphocyte Count 2.24 X10^3/uL (0.83-4.51); Absolute Neutrophil Count 2.6 X10^3/uL (2.0-7.7); Basophil# 0.04 X10^3/uL; Basophil% 0.7 % (0-1); Eosinophil# 0.14 X10^3/uL; Eosinophils% 2.5 % (0-5); Hematocrit 45.2 % (40-54); Hemoglobin 15.6 g/dL (13.0-16.5); Lymphocyte # 2.24 X10^3/ul (0.83-4.51); Lymphocyte % 40.4 % (19-41); Mean Corp Hgb Conc 34.5 g/dL (32-36); Mean Corpuscular Volume 95.6 fL (80-94); Mean Platelet Vol. 10.5 fl (6.2-12.0); Monocyte# 0.49 X10^3/uL; Monocyte% 8.8 % (0-10); NRBC Flagged by Analyzer 0 % (0-5); Neutrophil # 2.63 X10^3/uL (2.7-7.7); Neutrophil % 47.4 % (47-70); Platelet Count 204 K/mm3 (150-450); RBC Distribution Width CV 13.6 % (11.6-14.6); RBC Distribution Width SD 48.4 fl (35.1-43.9); Red Blood Count 4.73 M/mm3 (4.6-6.2); White Blood Count 5.6 K/mm3 (4.4-11.0)
[2023-06-04 13:07] LABS: AST(SGOT) 16 U/L (15-37); Alanine Aminotransfer ALT/SGPT 20 U/L (16-61); Albumin, Serum 3.3 g/dL (3.2-5.0); Alkaline Phosphatase 87 U/L (45-117); Anion Gap 5 (5-15); BUN 12 mg/dL (7-18); BUN/Creat Ratio 14.7 RATIO (10-20); Calcium,Total 9.2 mg/dL (8.5-10.1); Chloride 111 mmol/L (98-107); Cholesterol 157 mg/dL (200); Creatinine, Serum 0.82 mg/dL (0.70-1.30); EST Glomerular Filtration Rate 100 mL/min (>60); Est Glom Filt Rate - Afr Amer 121 mL/min (>60); Globulin 3.4 g/dL (2.2-4.2); Glucose 88 mg/dL (74-106); High Density Lipoprotein 42 mg/dL; Potassium 3.9 mmol/L (3.5-5.1); Protein, Total 6.7 g/dL (6.4-8.2); Sodium Level 142 mmol/L (136-145); Triglycerides 100 mg/dL; Very Low Density Lipoprotein 20 mg/dL (5-40)
== END | disposition home or self-care (01) ==
LOC: LAB 11:55
PROVIDERS: PCP Family Medicine; Referring Provider Nurse Practitioner Family; Visit Provider Nurse Practitioner Family
DX: G31.84 Mild cognitive impairment of uncertain or unknown etiology (principal); G71.11 Myotonic muscular dystrophy; I43 Cardiomyopathy in diseases classified elsewhere; I35.9 Nonrheumatic aortic valve disorder, unspecified; I44.7 Left bundle-branch block, unspecified; R06.02 Shortness of breath; I44.0 Atrioventricular block, first degree; R00.1 Bradycardia, unspecified; E78.5 Hyperlipidemia, unspecified
CPT/HCPCS: 36415; 80053; 80061; 85025

== ENCOUNTER 2023-07-01 13:30 | Outpatient (RCR) | payer MEDICARE, SELFPAY ==
--- NOTE | 2023-06-10 14:22 | HP.PTEVAL_ITS ---
Patient's Visit Information Visit Information Visit Information: YAS ALTMAN is a 68 year old M referred to Physical Therapy by Dr. Javier Huang MD with a diagnosis of MYOTONIC MUSCULAR DYSTROPHY ,WEAKNESS,POLYNEUROPATHY. Date of Evaluation: 06/10/23 Physical Therapist: Alonso Loving, PT, Cert MDT, OCS Visit Plan Frequency: 1-2x /Week Duration: 3 Weeks Plan: PT INTERVTIONS GAIT/BALANCE AND DEVELOP HEP FOR STRENGTHENING BLE ,FLEXABILITY AND FUNCTIONAL STRENGTHENING Subjective Subjective: This 68 y/o male presents to physical therapy with myotonic muscular dystrophy. Patient has this genetic condition which was diagnosed 41 y/o's. Patient condition is progression with decline in gait and function. Patient used cane in 2019. Patient disability 2010 which patient had to stop working. Patient recently seen Neurologist q 6 months -1 year. Patient has had falls and last Dec 2022. There is no medication and treatment for this condition. Patient recently had AFO's ~ one month ago due to foot drop. Patient has sowlling problems . Patient assist with dressing and does cooking cleaning . Patient lives in 1 story home level with walk in shower with grab bars. Patient has difficulty walking ~ 150 ft with fatigue with scooter. Denies paresthesia/tingling. Denies pain. Patient unable to do stairs . Patient condition affects QOL and function. Patient goals try to maintain function. SOCIAL : VOCATION: disability Objective Objective: POSTURE: marked forward posture ,knees /hips flexed GAIT: mod forward posture slow juice hips/knees flexed FLEXABLITY: mod limited hamstrings NEURO : denies paresthesia/tingling ,reflexes L3-4,L4-5,L5-S1 1/3 BALANCE: fair with fww MMT: ( peak force) quads left 36.8 ,right 25.8 ,hamstrings right 19.2 ,left 16.2,hip flexion right 19.0 ,left 22.1 Balance/Special Test Scores Lower Extremity Functional Score: 5 Goals Goal 1:: This patient to be I with HEP Goal Time Frame: 4-6 Weeks Goal 2:: Patient to demonstrate 40% improvement with increase function and less pain Goal Time Frame: 4-6 Weeks Goal 3:: Patient to improve peak force of quads/hamstring/hip by 5 # to improve function Goal Time Frame: 4-6 Weeks Goal 4:: Patient to improve LEFES score by 5 points to improve function/QOL Goal Time Frame: 4-6 Weeks Rehabilitation Potential Physical Therapy Diagnosis: This patient has MMD with progressive weakness impairs walking and function with ADL's thus benefit from skilled PT Rehabilitation Potential: Good Anticipated Interventions Patient/Client Instruction: Educate patient on: Condition and Plan of Care For the Purpose of:: To decrease pain, To increase ROM, To improve muscle performance and motor function, To improve ability to perform ADL's, To increase tolerance to activity/condition/position, To improve performance and independence with ADL's, To improve ability of physical actions for h ome/community/work/leisure, To improve health of tissue, To decrease soft tissue restriction, To improve endurance and To reduce risk of recurrence Therapeutic Exercise to Include: Strength training, Endurance training, Balance training, Flexibilty training, Gait and locomotor training and Active ROM For the Purpose of:: To improve muscle performance and motor function, To improve ability to perform ADL's, To increase tolerance to activity/condition/position, To improve ability of physical actions for home/community/work/leisure, To improve gait and locomotor functions, To improve health of tissue and To increase flexibility/ROM Text: Thank you for the opportunity to evaluate your patient. For Medicare and Medicare HMO plans, please review the plan of care and approve it. It will need to be FAXED BACK to us at [phone] for Medicare purposes. For Medicare only, by signing this I certify the plan of care. Please let me know if there are questions or concerns regarding this plan of care. Physician Signature: Date:____
--- NOTE | 2023-07-01 14:06 | HP.PTDCSUM ---
Discharge Summary D/C summary: It has been my pleasure to treat YAS ALTMAN referred by Dr. Javier Huang MD, with the diagnosis of MYOTONIC MUSCULAR DYSTROPHY ,WEAKNESS,POLYNEUROPATHY for a total of 2 visit(s). Discharge Date: 07/01/23 Please see the following information for a summary of their discharge status. Subjective Subjective: PATIENT FELL 1week ago on left knee. Overall Improvement % Improvement: 10 Objective Objective/Function: Objective: POSTURE: marked forward posture ,knees /hips flexed GAIT: mod forward posture slow juice hips/knees flexed FLEXABLITY: mod limited hamstrings NEURO : denies paresthesia/tingling ,reflexes L3-4,L4-5,L5-S1 1/3 BALANCE: fair with fww MMT: ( peak force) quads left 36.8 ,right 25.8 ,hamstrings right 19.2 ,left 16.2,hip flexion right 19.0 ,left 22.1 Goals Goal 1:: This patient to be I with HEP Goal 2:: Patient to demonstrate 40% improvement with increase function and less pain Goal 3:: Patient to improve peak force of quads/hamstring/hip by 5 # to improve function Goal 4:: Patient to improve LEFES score by 5 points to improve function/QOL Plan Plan: d/c D/C Information d/c sentence: If there are questions or concerns regarding this patient's physical therapy, please feel free to call me at [phone]. Thank you for the referral of this patient. Sincerely, Alonso Loving, PT, Cert MDT, OCS Balance/Gait/Functional tests Balance/Special Test Scores Lower Extremity Functional Score: 5
== END 2023-07-01 19:00 | disposition home or self-care (01) ==
LOC: PT 13:30
PROVIDERS: PCP Family Medicine; Referring Provider Psychiatry & Neurology Neurology; Visit Provider Psychiatry & Neurology Neurology
DX: G71.11 Myotonic muscular dystrophy (principal); G62.9 Polyneuropathy, unspecified; R53.1 Weakness
CPT/HCPCS: 97110; 97162; 97530

== ENCOUNTER 2023-10-07 14:00 | Outpatient (RCR) | payer MEDICARE, SELFPAY ==
--- NOTE | 2023-09-03 13:34 | ST ---
[facility] Speech Pathology [address] [place] [address] Modified Barium Swallow Study MR#: [id number] Acct: [id number] Name: YAS ALTMAN Rep #: [id number] : 1955 --- 68 years old From: Clarita Rossi M.A., [facility]-[employer] AND GENERATOR REPAIRER Modified Barium Swallow - Patient Information Study Date: 05/13/23 Study Time: 13:00 Direct Billable Minutes: 130 Total Minutes procedure & reportin Diagnosis: Myotonic dystrophy (G71.11), Dysphagia (R13.10) Referring Physician: Javier Huang Reason for Referral: Objectively assess swallow function, assess risk for aspiration, and determine recommendations for least restrictive diet textures and compensatory strategies to improve safety of swallow. Medical History: The patient is a 68-year-old male. Patient familiar to this [employer] REPAIRER. He participated in MBSS 03/14/2022, which revealed mild-moderate oropharyngeal dysphagia and recommended soft and bite size textures / thin liquids with use of aspiration precautions and follow-up OP speech therapy for oropharyngeal strengthening. Per , he refused outpatient speech therapy. Pt's provided the [employer] GENERATOR REPAIRER with a majority of information regarding his swallowing difficulty. He eats most solids without difficulty and avoids only tough foods, such as steak. He does have occasional coughing when eating and drinking. No history of choking per and patient. Patient denies swallowing difficulty. He was referred for MBS study from his neurologist to re-assess concerns for dysphagia. 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 Current Diet Ordered: Regular textures w/ soft meats / Thin liquids Dentition: WNL - some dental implants Mental Status: Impaired - hx of mild cognitive impairment Respiratory Status: Oxygenating on Room Air - Penetration-Aspiration Scale Penetration-Aspiration Scale: OBJECTIVE ASSESSMENT OF SWALLOW FUNCTION (QUANTITATIVE ? PER TRIAL): PENETRATION / ASPIRATION SCALE (FLORES): 1 = does not enter airway 2 = enters airway/above vocal folds/ejected 3 = enters airway/above vocal folds/not ejected 4 = enters airway/contacts vocal folds/ejected 5 = enters airway/contacts vocal folds/not ejected 6 = enters airway/below vocal folds/ejected 7 = enters airway/below vocal folds/not ejected despite effort 8 = enters airway/below vocal folds/no effort VIDEOFLOROSCOPIC SCALE SCORE (FLORES): Grade I = aspiration of material that has penetrated into the laryngeal vestibule, intact cough reflex Grade II = aspiration < 10 % of the bolus, intact cough reflex Grade III = aspiration of < 10 % of the bolus, reduced cough reflex or aspiration of > 10 % of the bolus, intact cough reflex Grade IV = aspiration of > 10 % of the bolus, reduced cough reflex - Penetration-Aspiration Scale Score Thin Liquid via teaspoon Result: 8= enters airway/below vocal folds/no effort - trace, delayed throat clear Thin Liquid via teaspoon Trial 2 Result: 1= does not enter airway Thin Liquid via small single sip from cup Result: 2= enter airway/above vocal folds/ejected Thin Liquid via large single sip from cup Result: 1= does not enter airway [place] Thick Liquid via small single sip from cup Result: 1= does not enter airway Comment: [employer] REPA[employer]ER cued chin tuck after the swallow to attempt clearing vallecular residues. Chin tuck = somewhat effective in clearing vallecular residue; however, it ultimately resulted in laryngeal penetration of nectar thick residue to the vocal folds after the swallow. Pudding via teaspoon with esophageal screen Result: 1= does not enter airway Comment: Laryngeal penetration of residues of previous trial reached the vocal folds. [employer] REPAIRER cued cough and re-swallow after the trial was completed. Cough was effective in clearing penetrated contrast from the laryngeal vestibule. Thin Liquid via small single sip from cup Trial 2 Result: 3= enters airways/above vocal folds/not ejected - trace 1/4 Cookie Result: 1= does not enter airway Thin Liquid via sequential sips from straw Result: 1= does not enter airway - Oral Phase Labial Seal: No Labial Escape Tongue Control During Bolus Hold: Posterior escape of less than half of bolus Bolus Preparation/Mastication: Slow prolonged chewing/mashing with complete recollection Bolus Transport/Lingual Motion: Slowed tongue motion Oral Residue: Majority of bolus remaining - ~50% of pudding, patient mostly cleared with independent use of second swallow - Pharyngeal Phase Initiation of Pharyngeal Swallow: Bolus head at posterior laryngeal surgace of epiglottis Soft Palate Elevation: Trace column of contrast/air between soft palate and pharyngeal wall Laryngeal Elevation: Partial superior movement thyroid cart/partial apprx aryt-epig petiole Anterior Hyoid Excursion: Partial anterior movement Epiglottic Movement: No inversion - Inconsistent - at times complete inversion, other times no inversion Laryngeal Vestibule Closure at Height of Swallow: Incomplete; narrow column of air/contrast in laryngeal vestibule Pharyngeal Stripping Wave: Present - diminished - minimal Pharyngoesophageal Segment Opening: Minimal distension and minimal duration; marked obstruction of flow - inconsistently demonstrated adequate and timely opening of UES Tongue Base Retraction: Wide column of contrast between tongue base & post. pharyngeal wall Pharyngeal Residue: Majority of contrast within or on pharyngeal structures - >50% of pudding and chewed cookie in the vallecula and pyriform sinuses after the first swallow, second swallow somewhat cleared - Treatment Strategies Effects of treatment strategies attemped:: chin tuck = not recommended effortful swallow = not effective multiple swallows = somewhat effective liquid wash = somewhat effective - Diagnosis/Impression Diagnosis: Moderate oropharyngeal phase dysphagia (R13.12) Impression: The oral phase is primarily marked by... -Prolonged, but adequate mastication of regular textured cookie. -Moderate oral residue of pudding, which patient mostly cleared with use of second swallow. -Decreased bolus control with premature posterior loss of <1/2 of thin by tsp to the posterior surface of the epiglottis prior to swallow onset. The pharyngeal phase is primarily marked by... -Decreased pharyngeal contraction with minimal to no pharyngeal stripping wave, severely decreased tongue base retraction, and decreased UES opening/duration - at times UES opening/duration was minimal and at times it allowed a majority of the bolus to clear. -Moderate pharyngeal residues of liquids and severe pharyngeal residues of pudding and cookie. Liquid wash was most effective in clearing pharyngeal residues of cookie and pudding. SEE strategies attempted in the PAS score section above. -Trace silent aspiration of thin liquids via tsp. Trace laryngeal penetration of thin liquids via cup that did not fully eject from the laryngeal vestibule after the swallow. Laryngeal penetration of nectar/mildly thick liquids after the swallow to the vocal folds. Cued cough cleared the contrast from the vocal folds. - Recommendations Diet: Thin Liquids - Soft and bite size textures (IDDSI Level 6) Comment: Intermittent cough and re-swallow throughout meals (~every 4-5 bites/sips), Oral care before and after meals Compensatory Strategies: Small Bites, Small Sips, Slow Rate, Alternate bites/solids and sips/liquids - 1:1 ratio, Sitting upright, Assist with verbal cues to use recommended strategies Supervision: 1:1 Close Supervision Recommend Repeat Modified Barium Swallow: Yes Comment: Repeat MBSS if increased s/s of aspiration despite use of strategies to improve safety of swallow. Will recommend minimum of yearly MBSS or FEES to monitor swallow function and aspiration risk given progressive nature of diagnosis of myotonic dystrophy. Need for Skilled Speech Therapy Services: Yes Comment: Will recommend the patient for outpatient dysphagia therapy to provide the patient and family thorough education re: recommended aspiration precautions and diet recommendations. Would recommend ongoing assessment of diet tolerance due to progressive nature of the patient's neurological disorder, myotonic dystrophy. Repeat MBSS warranted if increased concerns for aspiration with current diet or worsening respiratory status. Would consider diet downgrade of solid textures at bedside to minced and moist (IDDSI Level 5) or puree textures if concern for fatigue at meals. Would consider the patient for participation in EMST to improve maximum inspiratory pressure and hyoid displacement during swallowing. Education Completed: 1. Described result of evaluation., 4. Family/caregivers understand evaluation & agree w/ goals & tx plan., 7. Pt requires further education on strategies & risks. - Status Active ST Patient: Active - Contact Information [facility] Speech Therapy:: Clarita Rossi M.A. [facility]-[employer] AND GENERATOR REPAIRER Speech-Language Pathologist [facility] [address] [place] [address] [email or web address] [phone] 05/13/23 13:49
--- NOTE | 2023-09-03 13:44 | HP.SP.EV_ITS ---
History History Date of Eval: 09/03/23 Attending Doctor: Referring Doctor: Reason for Referral: DYSHAGIA RX HERE Previous speech therapy: No Results: MBSS 03/14/2022 -- refused additional OP therapy Other Relevant Medical History/Diagnoses/Surgery: YAS ALTMAN is a 68 year old male who presents to [facility] d/t concerns with moderate oropharyngeal dysphagia. 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 Dwight was accompanied today by his , Nithya, who helped serve as historian. Pt's history also includes his first MBSS in 03/14/2022 that revealed mil-moderate oropharyngeal dysphagia and recommended soft and bite sized textures with thin liquids. It was also recommended to adhere to aspiration precautions and follow- up with OP speech therapy, which he refused at the time. Pt recently participated in a second MBSS on 05/13/23 -- SEE RESULTS BELOW. Following the MBSS, Pt again refusing recommended OP speech therapy. On 07/31/2023, Nithya reporting Dwight had a choking episode while out to eat at a restaurant. She reports she went up to pay the bill and she heard him coughing. When she got back to the table he looked like he was going to pass out. Due to body positioning, the Heimlich was unable to be performed. He then passed out and when they got him onto the floor, he stopped breathing. A man on kitchen staff started to perform CPR and within a few seconds he began breathing shallowly. Police and EMS arrived shortly after and Dwight was breathing again prior to arriving to the hospital. Nithya reported he was hospitalized for 4 days on IV antibiotics to prevent PNA. Nithya reporting after this incident she is strongly encouraging Dwight to attend therapy - but understands this will also require his own will power too. Smoking Status: Never smoker Hx Smoking: No Hx Tobacco Use: No Pain Is pain an issue with your current prescribed condition?: No Personal Preferred language: Khmer Patient Allergies Allergies Allergies: Allergies lisinopril Adverse Reaction (Unknown, Verified 08/28/23 11:18) Cough Subjective Dysphagia Symptoms Reported Symptoms/Problems with: Coughing, Choking, Difficulty Swallowing Solids, Hx of Aspiration and Hx of Pneumonia Current Diet Solids Current Diet: Soft Current Diet Liquids Current Liquids: Thin Comments Dysphagia Education Completed at Time of Evluation: -: Extensive education provided re: results of Dwight's MBSS completed on 05/13/2023 as Pt unable to recall results of previous education at time of the MBSS. Reviewed all of the PAS trials with caution being brought to the first trial revealing silent aspiration. Reviewed the significant deficits in moderate oral and pharyngeal residue post deglutition, severely decreased tongue base tractions, inconsistent epiglottic inversion, minimal to no pharyngeal stripping wave, and decreased UES opening/duration. Showed visual of Pt's MBSS during this time to allow for further comprehension of swallowing function and anatomy. Education also provided on recommended diet consistency of Soft and Bite sized for solids. Reviewed the recommended bite sized and that textures should be able to be smashed with a thumb press on the tines of a fork. Discussed how smaller bite sizes will hopefully assist in reducing oropharyngeal residue -- Pt did comment that he feel oral residue has a tendency to pocket on the left side more than the right. Education also provided on which types of food to aim for and to avoid on this recommended diet. Asked Pt to come with questions for next session on types of foods he eats at home that he has questions about. Objective Dysphagia Administered by Administered by: Review of MBSS/Pt Case Hx Swallowing Impairment Contributing Factors to Swallowing Impairment: Reduced Oral Strength/ Coordination/Sensation, Impaired Oral-Pharyngeal Transport and Reduced Laryngeal Excursion Impact Impact on Safety & Functioning: Risk for Aspiration Recommendations Modified Barium Swallow/Cookie Swallow Recommended: Yes Swallowing Treatment: Yes Diet Texture Recommendations Solids: Soft & Bite sized (Level 6, Chopped) Liquids: Thin (Level 0) Safety Saftey Precautions/Swallowing Recommendations (Check all that Apply): 1 to 1 Close Supervision, Reduce Distractions, Needs Verbal Cues to Use Recommended Strategies, Small Sips & Bites when Eating, Multiple Swallows and Alternate Liquids & Solids Results Swallowing Within Normal Limits: No Swallowing Diagnosis: Oropharyngeal Phase Dysphagia (R13.12) Severity: Moderate Modified Barium Results Hx If Applicable Enter into a NOTE MBS Report Entered: Yes MBS Results (from prior exam): 09/03/23 13:34 Speech Therapy by Gale Ramos [facility] [address] [place] [address] Modified Barium Swallow Study MR#: [id number] Acct: [id number] Name: YAS ALTMAN Rep #: [id number] : 1955 --- 68 years old From: Clarita Rossi M.A., [facility] Modified Barium Swallow - Patient Information Study Date: 05/13/23 Study Time: 13:00 Direct Billable Minutes: 130 Total Minutes procedure & reportin Diagnosis: Myotonic dystrophy (G71.11), Dysphagia (R13.10) Referring Physician: Javier Huang Reason for Referral: Objectively assess swallow function, assess risk for aspiration, and determine recommendations for least restrictive diet textures and compensatory strategies to improve safety of swallow. Medical History: The patient is a 68-year-old male. Patient familiar to this [facility]. He participated in MBSS 03/14/2022, which revealed mild-moderate oropharyngeal dysphagia and recommended soft and bite size textures / thin liquids with use of aspiration precautions and follow-up OP speech therapy for oropharyngeal strengthening. Per , he refused outpatient speech therapy. Pt's provided the [facility] with a ma jority of information regarding his swallowing difficulty. He eats most solids without difficulty and avoids only tough foods, such as steak. He does have occasional coughing when eating and drinking. No history of choking per and patient. Patient denies swallowing difficulty. He was referred for MBS study from his neurologist to re-assess concerns for dysphagia. 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 Current Diet Ordered: Regular textures w/ soft meats / Thin liquids Dentition: WNL - some dental implants Mental Status: Impaired - hx of mild cognitive impairment Respiratory Status: Oxygenating on Room Air - Penetration-Aspiration Scale Penetration-Aspiration Scale: OBJECTIVE ASSESSMENT OF SWALLOW FUNCTION (QUANTITATIVE ? PER TRIAL): PENETRATION / ASPIRATION SCALE (FLORES): 1 = does not enter airway 2 = enters airway/above vocal folds/ejected 3 = enters airway/above vocal folds/not ejected 4 = enters airway/contacts vocal folds/ejected 5 = enters airway/contacts vocal folds/not ejected 6 = enters airway/below vocal folds/ejected 7 = enters airway/below vocal folds/not ejected despite effort 8 = enters airway/below vocal folds/no effort VIDEOFLOROSCOPIC SCALE SCORE (FLORES): Grade I = aspiration of material that has penetrated into the laryngeal vestibule, intact cough reflex Grade II = aspiration < 10 % of the bolus, intact cough reflex Grade III = aspiration of < 10 % of the bolus, reduced cough reflex or aspiration of > 10 % of the bolus, intact cough reflex Grade IV = aspiration of > 10 % of the bolus, reduced cough reflex - Penetration-Aspiration Scale Score Thin Liquid via teaspoon Result: 8= enters airway/below vocal folds/no effort - trace, delayed throat clear Thin Liquid via teaspoon Trial 2 Result: 1= does not enter airway Thin Liquid via small single sip from cup Result: 2= enter airway/above vocal folds/ejected Thin Liquid via large single sip from cup Result: 1= does not enter airway Frazee Thick Liquid via small single sip from cup Result: 1= does not enter airway Comment: [facility] cued chin tuck after the swallow to attempt clearing vallecular residues. Chin tuck = somewhat effective in clearing vallecular residue; however, it ultimately resulted in laryngeal penetration of nectar thick residue to the vocal folds after the swallow. Pudding via teaspoon with esophageal screen Result: 1= does not enter airway Comment: Laryngeal penetration of residues of previous trial reached the vocal folds. [facility] [employer] cued cough and re-swallow after the trial was completed. Cough was effective in clearing penetrated contrast from the laryngeal vestibule. Thin Liquid via small single sip from cup Trial 2 Result: 3= enters airways/above vocal folds/not ejected - trace 1/4 Cookie Result: 1= does not enter airway Thin Liquid via sequential sips from straw Result: 1= does not enter airway - Oral Phase Labial Seal: No Labial Escape Tongue Control During Bolus Hold: Posterior escape of less than half of bolus Bolus Preparation/Mastication: Slow prolonged chewing/mashing with complete recollection Bolus Transport/Lingual Motion: Slowed tongue motion Oral Residue: Majority of bolus remaining - ~50% of pudding, patient mostly cleared with independent use of second swallow - Pharyngeal Phase Initiation of Pharyngeal Swallow: Bolus head at posterior laryngeal surgace of epiglottis Soft Palate Elevation: Trace column of contrast/air between soft palate and pharyngeal wall Laryngeal Elevation: Partial superior movement thyroid cart/partial apprx aryt- epig petiole Anterior Hyoid Excursion: Partial anterior movement Epiglottic Movement: No inversion - Inconsistent - at times complete inversion, other times no inversion Laryngeal Vestibule Closure at Height of Swallow: Incomplete; narrow column of air/contrast in laryngeal vestibule Pharyngeal Stripping Wave: Present - diminished - minimal Pharyngoesophageal Segment Opening: Minimal distension and minimal duration; marked obstruction of flow - inconsistently demonstrated adequate and timely opening of UES Tongue Base Retraction: Wide column of contrast between tongue base & post. pharyngeal wall Pharyngeal Residue: Majority of contrast within or on pharyngeal structures - >50% of pudding and chewed cookie in the vallecula and pyriform sinuses after the first swallow, second swallow somewhat cleared - Treatment Strategies Effects of treatment strategies attemped:: chin tuck = not recommended effortful swallow = not effective multiple swallows = somewhat effective liquid wash = somewhat effective - Diagnosis/Impression Diagnosis: Moderate oropharyngeal phase dysphagia (R13.12) Impression: The oral phase is primarily marked by... -Prolonged, but adequate mastication of regular textured cookie. -Moderate oral residue of pudding, which patient mostly cleared with use of second swallow. -Decreased bolus control with premature posterior loss of <1/2 of thin by tsp to the posterior surface of the epiglottis prior to swallow onset. The pharyngeal phase is primarily marked by... -Decreased pharyngeal contraction with minimal to no pharyngeal stripping wave, severely decreased tongue base retraction, and decreased UES opening/duration - at times UES opening/duration was minimal and at times it allowed a majority of the bolus to clear. -Moderate pharyngeal residues of liquids and severe pharyngeal residues of pudding and cookie. Liquid wash was most effective in clearing pharyngeal residues of cookie and pudding. SEE strategies attempted in the PAS score section above. -Trace silent aspiration of thin liquids via tsp. Trace laryngeal penetration of thin liquids via cup that did not fully eject from the laryngeal vestibule after the swallow. Laryngeal penetration of nectar/mildly thick liquids after the swallow to the vocal folds. Cued cough cleared the contrast from the vocal folds. - Recommendations Diet: Thin Liquids - Soft and bite size textures (IDDSI Level 6) Comment: Intermittent cough and re-swallow throughout meals (~every 4-5 bites/sips), Oral care before and after meals Compensatory Strategies: Small Bites, Small Sips, Slow Rate, Alternate bites/solids and sips/liquids - 1:1 ratio, Sitting upright, Assist with verbal cues to use recommended strategies Supervision: 1:1 Close Supervision Recommend Repeat Modified Barium Swallow: Yes Comment: Repeat MBSS if increased s/s of aspiration despite use of strategies to improve safety of swallow. Will recommend minimum of yearly MBSS or FEES to monitor swallow function and aspiration risk given progressive nature of diagnosis of myotonic dystrophy. Need for Skilled Speech Therapy Services: Yes Comment: Will recommend the patient for outpatient dysphagia therapy to provide the patient and family thorough education re: recommended aspiration precautions and diet recommendations. Would recommend ongoing assessment of diet tolerance due to progressive nature of the patient's neurological disorder, myotonic dystrophy. Repeat MBSS warranted if increased concerns for aspiration with current diet or worsening respiratory status. Would consider diet downgrade of solid textures at bedside to minced and moist (IDDSI Level 5) or puree textures if concern for fatigue at meals. Would consider the patient for participation in EMST to improve maximum inspiratory pressure and hyoid displacement during swallowing. Education Completed: 1. Described result of evaluation., 4. Family/caregivers understand evaluation & agree w/ goals & tx plan., 7. Pt requires further education on strategies & risks. - Status Active ST Patient: Active - Contact Information [facility] Speech Therapy:: Clarita Rossi M.A. [facility] Speech-Language Pathologist [facility] [address] [place] [address] [email or web address] [phone] 05/13/23 13:49 Initialized on 09/03/23 13:34 - END OF NOTE Reference: Neuro-QoL instrument Radiation Oncology Patient Plan Plan Plan: Will rx Pt for skilled outpatient tx to address deficits in moderate oropharyngeal dysphagia. Pt would benefit from training and education re: process of diet tolerance checks, EMST performance and swallowing exercises to aid in oropharyngeal strengthening. Without skilled intervention, Pt is at risk for aspiration pneumonia, medical decline, and atrophy of laryngeal musculature. Recommendations MBS: Yes Treatment Warranted: Yes Treatment Warranted: Dysphagia Progress Prognosis: Good Frequency Frequency: 1x/Week Duration: 6 Weeks Patient/Family Goal Patient/Family Goal: To improve overall swallowing function and maintain swallowing function as disease progresses. Goals that are Established Determination:: Goals will be added/modified as deemed necessary and appropriate. Therapy will be discontinued when results of re-evaluation indicate therapy is no longer needed or lack of progress has been documented. Goal #1-5 Goal #1: Dwight will complete oropharyngeal exercises (Robert, Sarah, and Shaker) for 10 reps, 3x/day independently to improve tongue base retraction, PES opening/distention, and hyolaryngeal elevation and excursion. Goal #2: Dwight will utilize swallowing strategies (multiple swallows, cough and reswallow, and alternate bites/sips) and tolerate least restrictive diet with no overt s/s of aspiration/penetration to aid in safe consumption of solid/liquids given min verbal cues. Goal #3: Dwight will utilize EMST for 5 sets of 5 breaths, 5x/week, for 5 weeks given min verbal cues to improve overall strength of both swallow and expiratory muscle strength. Education Patient has Indicated that the Following Identified Educational Needs: None The Patient has indicated that they have no educational or learning abilities that may effect their care.: Yes Patient Instruction Patient Education: Diagnosis, Treatment Plan, Goals and Home Exercise Program Other Education: Recommended Pt to purchase EMST device to utilize throughout his POC. Handout provided on website as well as information re: the device. Person Taught: Patient and Family Teaching Method: Discussion, Demonstration and Handout Response to teaching: Return demonstration, Verbalize understanding and Reinforcement needed
--- NOTE | 2023-11-05 17:39 | HP.SP.DC_ITS ---
ST Discharge Summary Discharged: Discharge: YAS ALTMAN is a 68 year old male was seen for initial speech therapy dysphagia evaluation at [facility] on 09/03/23 secondary to dx Moderate oropharyngeal phase dysphagia (R13.12). 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 Pt is being d/c from OP speech therapy on this date d/t limited carry over of recommended home exercise program. Thank you for allowing me to participate the care of your Pt. Will reevaluate at Pt?s request following script from physician and Pt?s participation in his home exercise program.
== END 2023-10-07 19:00 | disposition home or self-care (01) ==
LOC: SP 14:00
PROVIDERS: PCP Family Medicine; Referring Provider Psychiatry & Neurology Neurology; Visit Provider Psychiatry & Neurology Neurology
DX: R13.10 Dysphagia, unspecified (principal); G71.11 Myotonic muscular dystrophy
CPT/HCPCS: 92526; 92610

== ENCOUNTER → 2023-11-26 | Outpatient (CLI) | payer MEDICARE, SELFPAY ==
--- NOTE | 2023-11-26 11:11 | RAD_ITS ---
STUDY: X-RAY CHEST REASON FOR EXAM: Male, 68 years old. Cough. History of pneumonia. TECHNIQUE: Frontal and lateral views of the chest. COMPARISON: June 27, 2020 FINDINGS: The lungs are clear and expanded. Stable elevation of the right hemidiaphragm. There is no demonstrated pleural abnormality. Cardiomegaly unchanged. Normal mediastinum and caroline. Normal visualized pulmonary arteries. Stable aortic tortuosity. Normal visualized thoracic spine. Normal visualized ribs, clavicles, and shoulders. There is no demonstrated abnormality of the visualized soft tissue structures of the upper abdomen. RAD/Chest PA and Lateral IMPRESSION: Stable chest with no acute or active cardiopulmonary disease. Electronically Signed: Branden Miranda MD at 14:13 EST ,
== END | disposition home or self-care (01) ==
LOC: RAD 11:10
PROVIDERS: PCP Family Medicine; Referring Provider Nurse Practitioner Family; Visit Provider Nurse Practitioner Family
DX: R09.89 Other specified symptoms and signs involving the circulatory and respiratory systems (principal); R05.9 Cough, unspecified; Z86.19 Personal history of other infectious and parasitic diseases
CPT/HCPCS: 71046

== ENCOUNTER → 2024-05-11 | Outpatient (CLI) | payer MEDICARE, SELFPAY ==
--- NOTE | 2024-05-11 13:54 | SP.MBSS_ITS ---
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 Medical History: The patient is a 69-year-old male. Patient familiar to this AQUATIC PHYSIOTHERAPIST. He participated in MBSS 03/14/2022, 05/13/23. Most recent MBSS revealed moderate oropharyngeal dysphagia and recommended soft and bite size textures / thin liquids with use of aspiration precautions and follow-up OP speech therapy for implementation of EMST, which he did follow-through with initially; however he currently has not been using EMST device, not strictly following aspiration precautions, and consuming Regular textures. He does; however, avoid regular textured meat, peanuts, popcorn, and hard veggies. Pt's provided the AQUATIC PHYSIOTHERAPIST with a majority of information regarding his swallowing difficulty. He had a choking episode at a restaurant on toast in July of 2023 resulting in him passing out, EMS being called, and hospitalization with antibiotics given to prevent pneumonia. He was referred for MBS study from his neurologist to re-assess concerns for dysphagia. AQUATIC PHYSIOTHERAPIST has recommended yearly MBSS due to progressive nature of myotonic dystrophy. Past medical history: Myotonic dystrophy, Aortic valve disorder, Cardiomyopathy in disease classified elsewhere, History of colon polyps, History of pneumonia (~5 years ago following bronchitis per pt's ), Hx of cataract, LBBB (left bundle branch block), Myotonia, PNA from aspiration of vomit (July 2022), Drop foot, Hearing aids, History of choking episode with loss of consciousness requiring hospitalization (July 2023). Current Diet Ordered: Soft and bite size textures / Thin liquids Dentition: Natural Teeth Mental Status: WNL Respiratory Status: Oxygenating on Room Air Penetration-Aspiration Scale Penetration-Aspiration Scale: OBJECTIVE ASSESSMENT OF SWALLOW FUNCTION (QUANTITATIVE ? PER TRIAL): PENETRATION / ASPIRATION SCALE (FLORES): 1 = does not enter airway 2 = enters airway/above vocal folds/ejected 3 = enters airway/above vocal folds/not ejected 4 = enters airway/contacts vocal folds/ejected 5 = enters airway/contacts vocal folds/not ejected 6 = enters airway/below vocal folds/ejected 7 = enters airway/below vocal folds/not ejected despite effort 8 = enters airway/below vocal folds/no effort VIDEOFLOROSCOPIC SCALE SCORE (FLORES): Grade I = aspiration of material that has penetrated into the laryngeal vestibule, intact cough reflex Grade II = aspiration < 10 % of the bolus, intact cough reflex Grade III = aspiration of < 10 % of the bolus, reduced cough reflex or aspiration of > 10 % of the bolus, intact cough reflex Grade IV = aspiration of > 10 % of the bolus, reduced cough reflex Penetration-Aspiration Scale Score Thin Liquid via teaspoon: Result: 1= does not enter airway Thin Liquid via teaspoon Trial 2: Result: 2= enter airway/above vocal folds/ejected Thin Liquid via large single sip: cup: Result: 2= enter airway/above vocal folds/ejected Whitney Thick Liquid via large single sip: cup: Result: 2= enter airway/above vocal folds/ejected Pudding via teaspoon: Result: 1= does not enter airway Comment: Esophageal screen - Complete clearance. Thin Liquid via sequential sips:straw: Result: 3= enters airways/above vocal folds/not ejected 1/2 Cookie: Result: 1= does not enter airway Thin Liquid via single sip: straw: Result: 3= enters airways/above vocal folds/not ejected Oral Phase Labial Seal: Interlabial escape, no progression to anterior lip Tongue Control During Bolus Hold: Posterior escape of greater than half of bolus Bolus Preparation/Mastication: Slow prolonged chewing/mashing with complete recollection Bolus Transport/Lingual Motion: Repetitive/disorganized tongue motion Oral Residue: Residue collection on oral structures Pharyngeal Phase Initiation of Pharyngeal Swallow: Bolus head in pyriforms Soft Palate Elevation: No bolus between soft palate and pharyngeal wall Laryngeal Elevation: Partial superior movement thyroid cart/partial apprx aryt- epig petiole Anterior Hyoid Excursion: Partial anterior movement Epiglottic Movement: No inversion (inconsistent) Laryngeal Vestibule Closure at Height of Swallow: Incomplete; narrow column of air/contrast in laryngeal vestibule Pharyngeal Stripping Wave: Present - diminished Pharyngoesophageal Segment Opening: Minimal distension and minimal duration; marked obstruction of flow Tongue Base Retraction: Wide column of contrast between tongue base & post. pharyngeal wall Pharyngeal Residue: Majority of contrast within or on pharyngeal structures Esophageal Phase Esophageal Clearance: Complete clearance Treatment Strategies Effects of treatment strategies attemped:: Cued cough and re-swallow after final trial = effective in clearing laryngeal vestibule of trace residues. Diagnosis/Impression Diagnosis: Moderate oropharyngeal dysphagia R13.12 Impression: The oral phase is primarily marked by... -Decreased bolus control with premature posterior loss of <1/2 of thin by tsp to the pyriforms prior to swallow onset. -Disorganized tongue motion for A-P transport. -Moderate oral residue of pudding, which patient mostly cleared with use of second swallow. Mild oral residues of cookie somewhat cleared with liquid wash. -Prolonged, but complete mastication of regular textured cookie. The pharyngeal phase is primarily marked by... -Decreased airway closure due to decrease anterior hyoid excursion, decreased laryngeal elevation, and inconsistent epiglottic inversion. -Decreased pharyngeal contraction with minimal pharyngeal stripping wave, severely decreased tongue base retraction, and moderately-severely decreased UES opening/duration with resulting moderate-severe pharyngeal residues most notable with thin liquid by tsp, pudding, and cookie. Liquid wash by straw were somewhat effective in clearing pharyngeal residues. -No aspiration observed during the assessment. Trace laryngeal penetration of thin liquids by straw and pudding, which did not fully eject from the laryngeal vestibule after the swallow. Cued [id number]-swallow cleared the contrast from the laryngeal vestibule. Recommendations Diet: Mechanical Soft Textures (Soft and Bite Size textures - IDDSI Level 6) and Thin Liquids Comment: Intermittent cough and re-swallow throughout meals (~every 4-5 bites/sips), Oral care before and after meals Compensatory Strategies: Small Bites, Small Sips, Slow Rate, Alternate bites/solids and sips/liquids (1-2 sips after each bite), Sitting upright and Assist with verbal cues to use recommended strategies Supervision: 1:1 Close Supervision Recommend Repeat Modified Barium Swallow: Yes (Repeat MBSS if increased s/s of aspiration despite use of safe swallow strategies or if patient experiences change in respiratory status. Will recommend minimum of yearly MBSS or FEES to monitor swallow function and aspiration risk given progressive nature of diagnosis of myotonic dystrophy.) Need for Skilled Speech Therapy Services: Yes Comment: reports the patient still has EMST device and instructions from OP AQUATIC PHYSIOTHERAPIST. If patient requires re-education in EMST, recommended aspiration precautions, and/or recommended diet textures, please re-consult OP ST. Patient's reports she has saved all past handouts and dysphagia therapy materials, but patient has been reluctant to follow recommendations. This AQUATIC PHYSIOTHERAPIST emphasized recommendation for soft and BITE SIZE (1.5cm X 1.5cm) textures to decrease risk for choking. verbalized understanding. Would consider diet downgrade of solid textures at bedside to minced and moist (IDDSI Level 5) or puree textures if concern for fatigue at meals. Education Completed: 1. Described result of evaluation., 4. Family/caregivers understand evaluation & agree w/ goals & tx plan. and 7. Pt requires further education on strategies & risks. Status Active ST Patient: Active Contact Information [facility]:: Clarita Rossi M.A. CCC-AQUATIC PHYSIOTHERAPIST? Speech-Language Pathologist?? [facility] [address] [place] [address]? [email or web address]?? [phone]
[2024-05-11 21:30] LABS: AST(SGOT) 19 U/L (15-37); Alanine Aminotransfer ALT/SGPT 22 U/L (16-61); Albumin, Serum 3.7 g/dL (3.2-5.0); Alkaline Phosphatase 84 U/L (45-117); Bilirubin, Direct 0.27 mg/dL (0.00-0.30); Cholesterol 175 mg/dL (200); Globulin 3.4 g/dL (2.2-4.2); High Density Lipoprotein 43 mg/dL; Protein, Total 7.1 g/dL (6.4-8.2); Triglycerides 124 mg/dL; Very Low Density Lipoprotein 25 mg/dL (5-40)
== END | disposition home or self-care (01) ==
LOC: RAD 12:55
PROVIDERS: Physician Assistant Medical; PCP Family Medicine; Referring Provider Psychiatry & Neurology Neurology; Visit Provider Psychiatry & Neurology Neurology
DX: G71.11 Myotonic muscular dystrophy (principal); R13.10 Dysphagia, unspecified; E78.00 Pure hypercholesterolemia, unspecified; R06.02 Shortness of breath; I44.0 Atrioventricular block, first degree
CPT/HCPCS: 36415; 74230; 80061; 80076; 92611

== ENCOUNTER → 2024-06-30 | Outpatient (CLI) | payer MEDICARE, SELFPAY ==
--- NOTE | 2024-06-30 10:51 | ECHOCS_ITS ---
Reason For Study: Nonrheumatic AV Disorder Procedure This was a 2D Doppler, Color Flow transthoracic echocardiogram. The study was technically difficult. Contrast injection was performed. Exam performed in department. Left Ventricle Normal LV size. Left ventricular systolic function is normal. The left ventricular ejection fraction is 55 %. Stage 1 diastolic dysfunction. No regional wall motion abnormalities noted. Right Ventricle Normal RV size. Normal systolic function. Atria Normal left atrium. Normal right atrium. Mitral Valve Normal mitral valve. Tricuspid Valve Normal tricuspid valve. Aortic Valve Trisinus/trileaflet aortic valve. Pulmonic Valve The pulmonic valve is not well visualized. Mild (1+) pulmonic valve insufficiency. Great Vessels Mildly dilated aortic root. The pulmonary artery is normal size. Normal inferior vena cava. Pericardium/Pleural No pericardial effusion. Medication 22 gauge I.V. with prn adaptor inserted into right arm. Diluted definity 2.5ml given slow IV push to enhance endocardial definition. MMode/2D Measurements & Calculations LVIDd: 4.7 cm IVSd: 1.1 cm Ao root diam: 3.5 cm LVIDs: 3.3 cm LVPWd: 1.2 cm LA dimension: 3.1 cm RVDd: 3.3 cm FS: 28.9 % LAV(MOD-bp): 40.2 ml LVAd ap4: 27.0 cm2 SV(MOD-sp4): 43.9 ml LAV(MOD-bp) Indexed: 18.8 ml/m2 LVLd ap4: 7.1 cm LAV(MOD-sp2): 50.5 ml EDV(MOD-sp4): 85.7 ml LAV(MOD-sp4): 32.7 ml EDV(sp4-el): 87.7 ml LVAs ap4: 17.6 cm2 LVLs ap4: 6.1 cm ESV(MOD-sp4): 41.8 ml ESV(sp4-el): 43.3 ml EF(MOD-sp4): 51.3 % EF(sp4-el): 50.6 % SV(sp4-el): 44.3 ml LA A4 area: 14.8 cm2 RA A4 area: 12.8 cm2 Time Measurements MV dec time: 0.25 sec Doppler Measurements & Calculations MV E max tunde: 53.2 cm/sec Lat Peak E' Tunde: 10.0 cm/sec Med Peak E' Tunde: 9.8 cm/sec MV A max tunde: 62.2 cm/sec E/E' lat: 5.3 E/E' med: 5.4 MV E/A: 0.86 MV V2 max: 71.4 cm/sec MV P1/2t max tunde: 59.2 cm/sec Ao V2 max: 106.3 cm/sec MV max P.0 mmHg MV P1/2t: 88.6 msec Ao max P.5 mmHg MV V2 mean: 41.7 cm/sec Ao V2 mean: 68.4 cm/sec MV mean P.79 mmHg MV dec slope: 195.6 cm/sec2 Ao mean P.2 mmHg MV V2 VTI: 23.7 cm MVA(P1/2t): 2.5 cm2 Ao V2 VTI: 22.0 cm AV (velocity ratio): 0.96 LV V1 max: 103.9 cm/sec PA V2 max: 87.4 cm/sec LV V1 max P.3 mmHg PA max PG (full): 0.36 mmHg LV V1 mean P.4 mmHg PA V2 mean: 56.5 cm/sec LV V1 mean: 71.8 cm/sec PA mean PG (full): 0.37 mmHg LV V1 VTI: 21.0 cm ECHO/Echo Complete W/ Contrast Interpretation Summary Normal LV size. Left ventricular systolic function is normal. The left ventricular ejection fraction is 55 %. Stage 1 diastolic dysfunction. Contrast injection was performed. Ordering Physician: Ana Esposito Referring Physician: Ana Esposito Performed By: Renny Smith RCS
== END | disposition home or self-care (01) ==
PROVIDERS: PCP Family Medicine; Referring Provider Internal Medicine Cardiovascular Disease; Visit Provider Internal Medicine Cardiovascular Disease
DX: I35.9 Nonrheumatic aortic valve disorder, unspecified (principal); I44.7 Left bundle-branch block, unspecified
CPT/HCPCS: 93306; Q9957; A4216; C8929

== ENCOUNTER → 2024-08-20 | Outpatient (CLI) | payer MEDICARE, SELFPAY ==
[2024-08-20 12:25] LABS: Absolute Lymphocyte Count 1.83 X10^3/uL (0.83-4.51); Absolute Neutrophil Count 3.5 X10^3/uL (2.0-7.7); Basophil# 0.04 X10^3/uL; Basophil% 0.7 % (0-1); Eosinophil# 0.14 X10^3/uL; Eosinophils% 2.3 % (0-5); Hematocrit 43.9 % (40-54); Hemoglobin 14.4 g/dL (13.0-16.5); Lymphocyte # 1.83 X10^3/ul (0.83-4.51); Lymphocyte % 30.4 % (19-41); Mean Corp Hgb Conc 32.8 g/dL (32-36); Mean Corpuscular Hgb 31.9 pg (27.0-32.0); Mean Corpuscular Volume 97.3 fL (80-94); Mean Platelet Vol. 11.2 fl (6.2-12.0); Monocyte# 0.46 X10^3/uL; Monocyte% 7.7 % (0-10); NRBC Flagged by Analyzer 0 % (0-5); Neutrophil # 3.52 X10^3/uL (2.7-7.7); Neutrophil % 58.6 % (47-70); Platelet Count 213 K/mm3 (150-450); RBC Distribution Width CV 13.8 % (11.6-14.6); RBC Distribution Width SD 49.7 fl (35.1-43.9); Red Blood Count 4.51 M/mm3 (4.6-6.2)
[2024-08-20 12:51] LABS: AST(SGOT) 13 U/L (15-37); Alanine Aminotransfer ALT/SGPT 16 U/L (16-61); Albumin, Serum 3.3 g/dL (3.2-5.0); Alkaline Phosphatase 88 U/L (45-117); Anion Gap 4 (5-15); BUN 11 mg/dL (7-18); BUN/Creat Ratio 13.4 RATIO (10-20); Chloride 110 mmol/L (98-107); Creatinine, Serum 0.82 mg/dL (0.70-1.30); EST Glomerular Filtration Rate 99 mL/min (>60); Est Glom Filt Rate - Afr Amer 120 mL/min (>60); Globulin 3.3 g/dL (2.2-4.2); Glucose 93 mg/dL (74-106); PSA,Total - Annual Screen 0.56 ng/mL (0.00-4.00); Potassium 3.8 mmol/L (3.5-5.1); Protein, Total 6.6 g/dL (6.4-8.2); Sodium Level 143 mmol/L (136-145)
== END | disposition home or self-care (01) ==
LOC: BFHLAB 10:37
PROVIDERS: PCP Family Medicine; Referring Provider Family Medicine; Visit Provider Family Medicine
DX: D75.89 Other specified diseases of blood and blood-forming organs (principal); Z51.81 Encounter for therapeutic drug level monitoring; Z12.5 Encounter for screening for malignant neoplasm of prostate
CPT/HCPCS: 36415; 80053; 84153; 85025; G0103

== ENCOUNTER 2024-09-27 09:56 | Emergency (ER) | payer MEDICARE, SELFPAY ==
[2024-09-27 09:57] VITALS: BP 108/94; PULSE 58; RESP 16; TEMP 36.4; O2SAT 96; BMI 29.7
--- NOTE | 2024-09-27 10:10 | ED.RN ---
Dr. Mcleod bedside
--- NOTE | 2024-09-27 10:20 | RAD_ITS ---
INDICATION: injury EXAMINATION/TECHNIQUE: X-RAY - RIGHT XR Knee Complete 4 Views or More 4 VIEWS COMPARISON: No relevant prior comparison study available FINDINGS: SOFT TISSUES: No soft tissue swelling or gas. No radiopaque foreign body. BONES/JOINTS: There is a nondisplaced fracture within the proximal fibular metaphysis. There is lateral patellar tilt. Preservation of the joint space.. No sclerotic or destructive changes observed. RAD/Knee 4 or More Views IMPRESSION: Proximal fibular fracture. Lateral patellar tilt. Electronically Signed: Sara Sheridan MD at 11:15 EST ,
--- NOTE | 2024-09-27 10:24 | ED.RN ---
Patient transported to radiology
--- NOTE | 2024-09-27 11:06 | ED.RN ---
Dr. Mcleod bedside providing update
--- NOTE | 2024-09-27 11:14 | EX.ED.GENINJ ---
HPI History of Present Illness Chief Complaint: Fall Informant: patient and spouse/S.O. Narrative Narrative: 69-year-old male presenting to the emergency room following a fall. The patient has a history of myotonic dystrophy. He fell yesterday while attempting to change his clothes in the bedroom. He states that he injured his right lower leg/knee area. He states he did strike his head but did not sustain a loss of consciousness. He notes no outward signs of trauma. No headache nausea vomiting. He notes continued pain in the right knee area anteriorly. Due to his myotonic dystrophy he wears lower extremity braces for foot drop. [facility] Medical History Sinus bradycardia First degree AV block B12 nutritional deficiency Dysphagia Polyneuropathy Fatigue Mild cognitive impairment Shortness of breath History of aspiration pneumonia Foot drop, bilateral Weakness Diarrhea Wears glasses Alcohol use Psoriasis Walker as ambulation aid Difficulty swallowing Non-smoker History of stress test History of echocardiogram Hypertension Cardiology follow-up encounter Aspiration pneumonia (~08/05/22) Myotonic dystrophy Cardiomyopathy in disease classified elsewhere Aortic valve disorder LBBB (left bundle branch block) Myotonia History of colon polyps Family history of colon cancer in father Home Medications ?Medication ?Instructions ?Recorded ?Last Taken ?Type ascorbic acid (vitamin C) 500 mg 500 mg PO DAILY 11/21/21 10/11/22 History tablet cholecalciferol (vitamin D3) 100 100 mcg PO DAILY 11/21/21 10/11/22 History mcg (4,000 unit) tablet lactobacillus combination no.9 4 4,000 mmu cells PO DAILY 08/30/22 10/11/22 History billion cell capsule (Adult 50 Plus Probiotic) Disability placard #1 ea 09/25/23 Unknown Rx carvedilol 6.25 mg tablet 6.25 mg PO BID #180 tabs 11/19/23 Unknown Rx losartan 25 mg tablet 25 mg PO DAILY #90 tabs 01/23/24 Unknown Rx TrueInsider PO DAILY 06/08/24 Unknown History folic acid 1 mg tablet 1 mg PO DAILY #90 TABLETS 07/06/24 Unknown Rx Cyanocobalamin 1,000 mcg PO DAILY #90 TABLETS 07/13/24 Unknown Rx Allergy/AdvReac Type Severity Reaction Status Date / Time lisinopril AdvReac Unknown Cough Verified 09/27/24 09:57 Family History Mother Heart disease Surgical History History of bilateral cataract extraction Social History Smoking Status: Never smoker second hand exposure: No alcohol intake: current alcohol intake frequency: a few times a week substance use type: does not use caffeine: No mikaela/mormon: Anabaptist seatbelt use: always ROS ROS ED Constitutional Constitutional ED: Denies chills, fever(s) or weight loss Eyes Eyes: Denies change in vision or diplopia ENT ENT ED: Denies ear pain, rhinorrhea or sore throat Cardiovascular Cardiovascular: Denies chest pain, orthopnea, palpitations or racing heartbeat Respiratory/Chest Respiratory/Chest: Denies cough, dyspnea or orthopnea Gastrointestinal Gastrointestinal: Denies abdominal pain, diarrhea, nausea or vomiting Genitourinary Genitourinary ED: Denies dysuria, hematuria or urinary frequency Musculoskeletal Musculoskeletal: Reports other Details: See history of present illness ; Denies arthralgias, back pain, myalgias or neck pain Integumentary Denies abscess or rash Neurologic Neurologic: Denies headache(s) or weakness Psychiatric Psychiatric: Denies anxiety, depression, suicidal ideation or suicidal thoughts Endocrine Endocrinology: Denies polydipsia, polyphagia or polyuria Allergic/Immunologic Allergic/Immunologic ED: Denies mouth swelling, tongue swelling or urticaria EXAM Physical Exam Const Vital Signs: 09/27/24 09:57 09/27/24 10:08 09/27/24 11:36 Temperature 97.6 F L 97.6 F L Temperature Source Oral Pulse Rate 58 L 58 L Respiratory Rate 16 16 Respiratory Effort Normal Respiratory Depth Normal Respiratory Pattern Normal Blood Pressure 108/94 H 108/94 H Blood Pressure Mean 98 98 Pulse Ox 96 96 Oxygen Delivery Method Room Air Room Air Positive well nourished and well developed General Appearance ED: well developed and NAD HEENT Reports normocephalic, head/scalp atraumatic and moist mucous membranes Eyes PERRL and EOMs intact bilaterally Neck full ROM, no lymphadenopathy, supple and no JVD Resp normal respiratory effort and clear to auscultation bilaterally Cardio regular rate, regular rhythm and no murmurs GI normal to inspection, nondistended, normoactive bowel sounds and non-tender Palpation: soft Back/Spine no CVA tenderness and normal ROM Extremity Extremity Narrative: There is infra patella anterior swelling and contusion noted over the tibial tuberosity and lateral tenderness to palpation near the fibular head. No obvious deformities are felt. No joint effusion is seen. Extensor mechanism is intact. General Extremety ED: Negative for edema General Extremity: Negative for edema Neuro oriented x3 and CN's II-XII intact bilaterally Sensorium / Orientation: alert Motor Exam: strength 5/5 throughout Psych mental status grossly normal Mood & Affect: Negative for depressed or tearful Skin no rashes or lesions noted and no wounds MDM MDM MDM Narrative Medical decision making narrative: Differential diagnosis would include but not limited to fracture ligamentous sprain tendon injury. Patient does not feel that he injured his head. He has a GCS of 15. No loss of consciousness not on any blood thinners no overt signs of trauma. Shared decision making at this time concluded with no advanced imaging of the brain. My independent interpretation of the plain films of the right knee is a nondisplaced fibular head fracture. Radiology concurs. Patient does have foot drop splints that he wears when he ambulates. We talked about a boot orthosis. I do not believe that this is operative at this point. Using shared decision making we are going to have him continue to use the foot drop splints. He will follow-up locally with orthopedics. Return if worsening or concerns History & Record Review Discussion w/independent historian: Patient and Significant other Radiography Diagnostic Testing: Clinical Impression(s) from Imaging Studies Knee X-Ray 09/27/24 10:20 IMPRESSION: Proximal fibular fracture. Lateral patellar tilt. Electronically Signed: Sara Sheridan MD at 11:15 EST , Discharge Plan Triage Chief Complaint: Fall ED Provider: Jeffry Mcleod Dx/Rx/DC Orders Clinical Impression: Fall, Closed fracture fibula, head, Contusion of knee, right Instructions: ED Leg Fracture Prescriptions: No Action (DME) Disability placard See Rx Instructions .Route .MEDSUPPLY Qty: 1 0RF Rx Instructions: Expiration: 09/25/2026 Adult 50 Plus Probiotic 4 billion cell capsule 4,000 mmu cells PO DAILY Rx Instructions: administer with a meal folic acid 1 mg tablet 1 mg PO DAILY Qty: 90 3RF [facility] PO DAILY ascorbic acid (vitamin C) 500 mg tablet 500 mg PO DAILY cholecalciferol (vitamin D3) 100 mcg (4,000 unit) tablet 100 mcg PO DAILY carvedilol 6.25 mg tablet 6.25 mg PO BID Qty: 180 3RF Rx Instructions: must administer with a meal/food losartan 25 mg tablet 25 mg PO DAILY Qty: 90 3RF Cyanocobalamin 1,000 mcg tablet 1,000 mcg PO DAILY Qty: 90 3RF Primary Care Provider: Conrad Correa Referrals: Conrad Correa DO [Primary Care Provider] - Shashi Bello MD [Med Staff - Active Staff] - As soon as possible (for local orthopedics or see the orthopedist of your choice) Print Language: Anguillan Disposition Disposition: Home, Self Care Discharge Date/Time: 09/27/24 11:36
[2024-09-27 11:36] VITALS: BP 108/94; PULSE 58; RESP 16; TEMP 36.4; O2SAT 96
== END 2024-09-27 11:36 | disposition home or self-care (01) ==
PROVIDERS: Emergency Provider Emergency Medicine; PCP Family Medicine; Visit Provider Emergency Medicine
DX: S82.401A Unspecified fracture of shaft of right fibula, initial encounter for closed fracture (principal); S80.01XA Contusion of right knee, initial encounter; I10 Essential (primary) hypertension; W18.30XA Fall on same level, unspecified, initial encounter; Y93.89 Activity, other specified; Z98.41 Cataract extraction status, right eye; Z98.42 Cataract extraction status, left eye
CPT/HCPCS: 73564; 99282

== ENCOUNTER → 2025-01-12 | Outpatient (CLI) | payer MEDICARE, SELFPAY ==
[2025-01-12 13:03] LABS: Absolute Lymphocyte Count 2.19 X10^3/uL (0.83-4.51); Basophil# 0.05 X10^3/uL; Basophil% 0.8 % (0-1); Eosinophil# 0.17 X10^3/uL; Eosinophils% 2.8 % (0-5); Hematocrit 43.2 % (40-54); Hemoglobin 14.7 g/dL (13.0-16.5); Lymphocyte # 2.19 X10^3/ul (0.83-4.51); Lymphocyte % 36.1 % (19-41); Mean Corpuscular Hgb 33.3 pg (27.0-32.0); Mean Corpuscular Volume 97.7 fL (80-94); Mean Platelet Vol. 10.7 fl (6.2-12.0); Monocyte# 0.69 X10^3/uL; Monocyte% 11.4 % (0-10); NRBC Flagged by Analyzer 0 % (0-5); Neutrophil # 2.95 X10^3/uL (2.7-7.7); Neutrophil % 48.6 % (47-70); Platelet Count 191 K/mm3 (150-450); RBC Distribution Width CV 13.8 % (11.6-14.6); RBC Distribution Width SD 49.6 fl (35.1-43.9); Red Blood Count 4.42 M/mm3 (4.6-6.2); White Blood Count 6.1 K/mm3 (4.4-11.0)
[2025-01-12 13:37] LABS: Anion Gap 6 (5-15); BUN 11 mg/dL (7-18); BUN/Creat Ratio 14.5 RATIO (10-20); Calcium,Total 9.7 mg/dL (8.5-10.1); Chloride 110 mmol/L (98-107); Creatinine, Serum 0.76 mg/dL (0.70-1.30); EST Glomerular Filtration Rate 108 mL/min (>60); Est Glom Filt Rate - Afr Amer 131 mL/min (>60); Glucose 89 mg/dL (74-106); Potassium 3.8 mmol/L (3.5-5.1); Sodium Level 144 mmol/L (136-145); Troponin-I HS 73 pg/mL (3.0-78.0)
== END | disposition home or self-care (01) ==
LOC: LAB 12:44
PROVIDERS: PCP Family Medicine; Referring Provider Nurse Practitioner Family; Visit Provider Nurse Practitioner Family
DX: I35.9 Nonrheumatic aortic valve disorder, unspecified (principal); I44.7 Left bundle-branch block, unspecified; I10 Essential (primary) hypertension; R55 Syncope and collapse
CPT/HCPCS: 36415; 80048; 84484; 85025

== ENCOUNTER → 2025-01-18 | Outpatient (CLI) | payer MEDICARE, SELFPAY ==
[2025-01-18 15:53] LABS: Vitamin B12 1247 pg/mL (211-911)
[2025-01-18 16:28] LABS: AST(SGOT) 21 U/L (15-37); Alanine Aminotransfer ALT/SGPT 20 U/L (16-61); Albumin, Serum 3.2 g/dL (3.2-5.0); Alkaline Phosphatase 93 U/L (45-117); Bilirubin, Direct 0.21 mg/dL (0.00-0.30); Globulin 3.5 g/dL (2.2-4.2); Magnesium 2.6 mg/dL (1.6-2.6); Protein, Total 6.7 g/dL (6.4-8.2)
[2025-01-23 23:07] LABS: Vitamin B1, Thiamine 108.5 nmol/L (66.5-200.0)
== END | disposition home or self-care (01) ==
LOC: MTLAB 11:43
PROVIDERS: PCP Family Medicine; Referring Provider Psychiatry & Neurology Neurology; Visit Provider Psychiatry & Neurology Neurology
DX: F03.90 Unspecified dementia, unspecified severity, without behavioral disturbance, psychotic disturbance, mood disturbance, and anxiety (principal)
CPT/HCPCS: 36415; 80076; 82607; 82746; 83735; 84425; 84443

== ENCOUNTER → 2025-02-05 | Outpatient (CLI) | payer MEDICARE, SELFPAY ==
--- NOTE | 2025-02-05 09:48 | ECHOCS_ITS ---
Reason For Study Reason For Study: Syncope/Near Syncope Procedure This was a 2D Doppler, Color Flow transthoracic echocardiogram. Contrast injection was performed. Exam performed in department. Left Ventricle Normal size and thickness. Septal motion consistent with bundle branch block. LVEF 50-55%. Stage I diasolic dysfunction. Right Ventricle Normal right ventricle. Atria The left and right atria are normal. Mitral Valve Mild (1+) mitral valve insufficiency. Tricuspid Valve Trivial tricuspid valve insufficiency. Normal pulmonary artery pressure. Aortic Valve Trisinus/trileaflet aortic valve. Pulmonic Valve The pulmonic valve is not well visualized. Great Vessels Normal sized aortic root. Pericardium/Pleural Trivial pericardial effusion. Medication Diluted definity 3ml given slow IV push to enhance endocardial definition. MMode/2D Measurements & Calculations LVIDd: 4.7 cm IVSd: 1.0 cm Ao root diam: 3.6 cm LVIDs: 2.7 cm LVPWd: 0.98 cm RVDd: 3.1 cm FS: 42.1 % LAV(MOD-bp): 24.8 ml LVAd ap4: 22.9 cm2 SV(MOD-sp4): 37.6 ml LAV(MOD-bp) Indexed: 11.5 ml/m2 LVLd ap4: 6.8 cm SI(MOD-sp4): 17.4 ml/m2 LAV(MOD-sp2): 27.7 ml EDV(MOD-sp4): 63.3 ml LAV(MOD-sp4): 21.9 ml EDV(sp4-el): 65.5 ml LVAs ap4: 12.9 cm2 LVLs ap4: 5.3 cm ESV(MOD-sp4): 25.7 ml ESV(sp4-el): 26.5 ml EF(MOD-sp4): 59.4 % EF(sp4-el): 59.5 % SV(sp4-el): 38.9 ml LA A4 area: 11.8 cm2 LA dimension(2D): 3.0 cm RA A4 area: 10.1 cm2 TAPSE: 1.8 cm Time Measurements MV dec time: 0.25 sec Doppler Measurements & Calculations MV E max tunde: 38.7 cm/sec Lat Peak E' Tunde: 11.1 cm/sec Med Peak E' Tunde: 5.7 cm/sec MV A max tunde: 65.7 cm/sec E/E' lat: 3.5 E/E' med: 6.7 MV E/A: 0.59 MV dec slope: 157.4 cm/sec2 Ao V2 max: 108.4 cm/sec LV V1 max: 102.9 cm/sec Ao max P.7 mmHg LV V1 max P.2 mmHg Ao V2 mean: 80.0 cm/sec LV V1 mean P.1 mmHg Ao mean P.8 mmHg LV V1 mean: 66.8 cm/sec Ao V2 VTI: 23.7 cm LV V1 VTI: 22.5 cm AV (velocity ratio): 0.95 PA V2 max: 99.3 cm/sec TR max tunde: 244.6 cm/sec TR max P.9 mmHg ECHO/Echo Complete W/ Contrast Interpretation Summary LVEF 50-55%. Stage I diasolic dysfunction. Mild (1+) mitral valve insufficiency. Ordering Physician: Gucci Ny Referring Physician: Conrad Correa Performed By: Sneha Ny RDCS, RVT
== END | disposition home or self-care (01) ==
LOC: CVS 09:48
PROVIDERS: PCP Family Medicine; Referring Provider Nurse Practitioner Family; Visit Provider Nurse Practitioner Family
DX: R55 Syncope and collapse (principal); I35.9 Nonrheumatic aortic valve disorder, unspecified; I44.7 Left bundle-branch block, unspecified; I10 Essential (primary) hypertension
CPT/HCPCS: 93225; 93226; 93306; Q9957; A4216; C8929

== ENCOUNTER → 2025-03-03 | Outpatient (CLI) | payer MEDICARE, SELFPAY ==
--- NOTE | 2025-03-03 13:55 | SP.MBSS_ITS ---
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 Medical History: The patient is a 70-year-old male. The patient is familiar to this WAREHOUSE PRICING AND INVENTORY CLERK. He has participated in MBSS 03/14/2022, 05/13/2023, 05/11/2024. Most recent MBSS revealed moderate oropharyngeal dysphagia and recommended soft and bite size textures / thin liquids with use of the following aspiration precautions: Intermittent cough and re-swallow throughout meals (~every 4-5 bites/sips), Oral care before and after meals, Small Bites, Small Sips, Slow Rate, Alternate bites/solids and sips/liquids (1-2 sips after each bite), Sitting upright and Assist with verbal cues to use recommended strategies, 1:1 Close Supervision. Per ?s report, the patient did not attend any follow-up ST this past year and he does not complete EMST at home. He also does not adhere to a soft and bite size diet, and he consumes regular textures except for steak, nuts, and popcorn. He has a history of a choking episode at a restaurant on [employer] in July of 2023 resulting in him passing out, EMS being called, and hospitalization with antibiotics given to prevent pneumonia. Since the previous MBSS, he has not had any choking spells or PNA. This WAREHOUSE PRICING AND INVENTORY CLERK has recommended annual MBSS due to progressive nature of myotonic dystrophy, which his neurologist, Dr. Huang, has continued to order yearly. Past medical history: Myotonic dystrophy, Fall w/ nose fracture (December 2024), Aortic valve disorder, Cardiomyopathy in disease classified elsewhere, History of colon polyps, History of pneumonia (~5 years ago following bronchitis per pt's ), History of cataract, LBBB (left bundle branch block), Myotonia, PNA from aspiration of vomit (July 2022), Drop foot, Hearing aids, History of choking episode with loss of consciousness requiring hospitalization (July 2023). Current Diet Ordered: Soft and bite size / thin liquids Dentition: Natural Teeth and Missing Teeth Mental Status: WNL Respiratory Status: Oxygenating on Room Air Penetration-Aspiration Scale Penetration-Aspiration Scale: OBJECTIVE ASSESSMENT OF SWALLOW FUNCTION (QUANTITATIVE ? PER TRIAL): PENETRATION / ASPIRATION SCALE (FLORES): 1 = does not enter airway 2 = enters airway/above vocal folds/ejected 3 = enters airway/above vocal folds/not ejected 4 = enters airway/contacts vocal folds/ejected 5 = enters airway/contacts vocal folds/not ejected 6 = enters airway/below vocal folds/ejected 7 = enters airway/below vocal folds/not ejected despite effort 8 = enters airway/below vocal folds/no effort VIDEOFLOROSCOPIC SCALE SCORE (FLORES): Grade I = aspiration of material that has penetrated into the laryngeal vestibule, intact cough reflex Grade II = aspiration < 10 % of the bolus, intact cough reflex Grade III = aspiration of < 10 % of the bolus, reduced cough reflex or aspiration of > 10 % of the bolus, intact cough reflex Grade IV = aspiration of > 10 % of the bolus, reduced cough reflex Penetration-Aspiration Scale Score Thin Liquid via teaspoon: Result: 1= does not enter airway Thin Liquid via teaspoon Trial 2: Result: 3= enters airways/above vocal folds/not ejected Thin Liquid via large single sip: cup: Result: 1= does not enter airway [place] Thick Liquid via sequential sips: cup: Result: 2= enter airway/above vocal folds/ejected Comment: Trace barium on the vocal folds at start of trial, likely post prandial penetration of thin liquid residue Pudding via teaspoon: Result: 1= does not enter airway Thin Liquid via single sip: straw: Result: 1= does not enter airway 1/4 Cookie coated in barium w/ 2 liquid washes via straw: Result: 8= enters airway/below vocal folds/no effort Comment: Aspiration of thin liquid wash via straw Cued cough and re-swallow = somewhat effective Thin Liquid via small single sip: cup: Result: 5= enters airways/contacts vocal folds/not ejected Comment: Reflexive cough cleared majority of barium from vocal folds, but trace barium remained in laryngeal vestibule Thin Liquid via small single sip: cup Effortful swallow: Result: 2= enter airway/above vocal folds/ejected Oral Phase Labial Seal: Escape progressing to mid-chin Tongue Control During Bolus Hold: Posterior escape of less than half of bolus Bolus Preparation/Mastication: Slow prolonged chewing/mashing with complete recollection (posterior loss to the oropharynx) Bolus Transport/Lingual Motion: Repetitive/disorganized tongue motion (Slowed tongue motion) Oral Residue: Residue collection on oral structures Pharyngeal Phase Initiation of Pharyngeal Swallow: Bolus head in pyriforms Soft Palate Elevation: No bolus between soft palate and pharyngeal wall Laryngeal Elevation: Partial superior movement thyroid cart/partial apprx aryt- epig petiole Anterior Hyoid Excursion: Partial anterior movement Epiglottic Movement: Partial inversion (inconsistent) Laryngeal Vestibule Closure at Height of Swallow: Incomplete; narrow column of air/contrast in laryngeal vestibule Pharyngeal Stripping Wave: Absent Pharyngoesophageal Segment Opening: Minimal distension and minimal duration; marked obstruction of flow Tongue Base Retraction: Wide column of contrast between tongue base & post. ph aryngeal wall Pharyngeal Residue: Majority of contrast within or on pharyngeal structures Esophageal Phase Esophageal Clearance: Esophageal retention (minimal in lower esophagus) Diagnosis/Impression Diagnosis: Moderate-severe oropharyngeal dysphagia R13.12 Impression: The oral phase is primarily marked by... -Decreased bolus control with premature posterior loss of <1/2 of thin liquids to the pyriforms prior to swallow onset. -Disorganized and slowed tongue motion for A-P transport. -Mild-moderate oral residue of pudding, which patient mostly cleared with use of second swallow. Mild oral residues of cookie somewhat cleared with liquid wash. -Prolonged, but complete mastication of 1/4 of a regular textured cookie. The pharyngeal phase is primarily marked by... -Delayed swallow onset. -Decreased airway closure due to decreased anterior hyoid excursion, decreased laryngeal elevation, and inconsistent epiglottic inversion. -Decreased pharyngeal motility with no pharyngeal stripping wave, severely decreased tongue base retraction, and moderately-severely decreased UES opening/duration with resulting moderate-severe pharyngeal residues most notable with pudding and cookie. Multiple swallows were somewhat effective in clearing pharyngeal residues, but liquid wash was most successful in clearing pudding and cookie from the pharynx. -Aspiration of 2 thin liquid washes via straw during cookie trial. Deep laryngeal penetration of thin liquids via cup 1X. Cough and re-swallow, single sips, no straws, and effortful swallows were all somewhat effective in reducing aspiration risk. Recommendations Diet: Soft and Bite Sized Textures and Thin Liquids Compensatory Strategies: Small Bites, Small Sips (effortful swallows), No Straws, Slow Rate (Sips 1 at a time), Multiple Swallows, Alternate bites/solids and sips/liquids (1-2 sips after each bite), Sitting upright and Remain sitting upright for 30 minutes after PO intake Supervision: 1:1 Direct Supervision Recommend Repeat Modified Barium Swallow: Yes (Annual MBSS to assess risk for worsening dysphagia and aspiration risk due to dx of myotonic dystrophy) Need for Skilled Speech Therapy Services: Yes Comment: reports the patient still has EMST device, IDDSI level 6 diet handouts, and instructions from WAREHOUSE PRICING AND INVENTORY CLERK on aspiration precautions. Patient and do not feel he needs additional therapy at this time; however, if at any time the patient requires re-education in EMST, recommended aspiration precautions, and/or recommended diet textures, please re-consult OP ST. This WAREHOUSE PRICING AND INVENTORY CLERK emphasized to the patient the recommendation for soft and BITE SIZE textures to decrease his risk for choking. verbalized understanding, but she re-iterated he has not been compliant w/ diet textures recommendations this past year. Education Completed: 1. Described result of evaluation., 4. Family/caregivers understand evaluation & agree w/ goals & tx plan. and 7. Pt requires further education on strategies & risks. Status Active ST Patient: Active Contact Information [facility] Speech Therapy:: Clarita Rossi M.A. [facility]-WAREHOUSE PRICING AND INVENTORY CLERK? Speech-Language Pathologist?? [facility] [address] [place] [address]? [email or web address]?? [phone]
== END | disposition home or self-care (01) ==
LOC: RAD 12:46
PROVIDERS: PCP Family Medicine; Referring Provider Psychiatry & Neurology Neurology; Visit Provider Psychiatry & Neurology Neurology
DX: G71.11 Myotonic muscular dystrophy (principal); R13.10 Dysphagia, unspecified
CPT/HCPCS: 74230; 92611

== ENCOUNTER → 2025-05-06 | Outpatient (CLI) | payer MEDICARE, SELFPAY ==
[2025-05-06 18:19] LABS: Magnesium 2.3 mg/dL (1.5-2.2)
[2025-05-06 18:38] LABS: Ammonia 30.5 umol/L (16-60)
[2025-05-06 18:39] LABS: Hematocrit 40.4 % (40-54); Hemoglobin 13.4 g/dL (13.0-16.5); Mean Corp Hgb Conc 33.2 g/dL (32-36); Mean Corpuscular Hgb 32.3 pg (27.0-32.0); Mean Corpuscular Volume 97.3 fL (80-94); Mean Platelet Vol. 11.3 fl (6.2-12.0); Platelet Count 204 K/mm3 (150-450); RBC Distribution Width CV 13.8 % (11.6-14.6); RBC Distribution Width SD 49.7 fl (35.1-43.9); Red Blood Count 4.15 M/mm3 (4.6-6.2); White Blood Count 5.6 K/mm3 (4.4-11.0)
[2025-05-06 19:09] LABS: ALB/GLOB Ratio 1.4 RATIO (0.9-2.4); AST(SGOT) 20 U/L (<=37); Alanine Aminotransfer ALT/SGPT 10 U/L (<=46); Albumin, Serum 3.8 g/dL (3.4-4.8); Alkaline Phosphatase 101 U/L (40-129); Anion Gap 11 (5-15); BUN 10 mg/dL (4-19); BUN/Creat Ratio 12.4 RATIO (10-20); Calcium,Total 9.4 mg/dL (7.6-11.0); Carbon Dioxide 25.9 mmol/L (21.0-32.0); Chloride 107 mmol/L (98-108); Creatinine, Serum 0.81 mg/dL (0.70-1.20); EST Glomerular Filtration Rate 95 (>60); Globulin 2.8 g/dL (2.2-4.2); Glucose 95 mg/dL (70-99); Potassium 3.6 mmol/L (3.3-5.1); Protein, Total 6.5 g/dL (5.9-8.4); Sodium Level 145 mmol/L (133-145)
[2025-05-11 13:08] LABS: Vitamin D 1,25-Dihydroxy 54.8 pg/mL (24.8-81.5)
== END | disposition home or self-care (01) ==
LOC: MTLAB 14:44
PROVIDERS: PCP Family Medicine; Referring Provider Psychiatry & Neurology Neurology; Visit Provider Psychiatry & Neurology Neurology
DX: G62.9 Polyneuropathy, unspecified (principal); G71.11 Myotonic muscular dystrophy; R53.1 Weakness
CPT/HCPCS: 36415; 80053; 82140; 82652; 83735; 83883; 84443; 85027

== ENCOUNTER → 2025-05-17 | Outpatient (CLI) | payer MEDICARE, SELFPAY ==
--- NOTE | 2025-05-17 12:51 | RAD_ITS ---
PROCEDURE: L/S SPINE MIN 4 VIEWS 05/17/2025 REASON FOR EXAM: RULE OUT FACTURE TECHNIQUE: L/S SPINE MIN 4 VIEWS COMPARISON: None. FINDINGS: Straightening of the lumbar lordosis, probably muscular spasm and pain. Mild dextroscoliosis apex at L3. There are diffuse spondylotic changes. Findings are demonstrated to by diffuse disc space narrowing, osteophyte formation and degenerative endplate sclerosis. There is diffuse facet joint arthropathy with secondary bilateral neural foramina narrowing. No fracture or dislocation is seen. No aggressive lytic or blastic bony lesion is noted. RAD/L/S Spine Min 4 Views IMPRESSION: Mild diffuse spondylosis. Mild dextroscoliosis apex at L3. Straightening of the lumbar lordosis, probably muscular spasm and pain. No pars defect is identified on the oblique images. Reading [facility] [address]
--- NOTE | 2025-05-17 12:52 | RAD_ITS ---
PROCEDURE: HIP, UNI W/ PELVIS 2-3 VIEWS 05/17/2025 REASON FOR EXAM: RULE OUT FRACTURE TECHNIQUE: Three-view left hip to include the AP pelvis COMPARISON: None. RAD/HIP, UNI W/ Pelvis 2-3 Views IMPRESSION: Partially visualized dextroscoliosis of the lumbar spine. Prominent degenerative changes seen of the visualized lower lumbar spine. Sacroiliac joints show minimal degenerative changes. Minimal right and minimal to mild left hip joint degenerative changes are seen, without significant joint space narrowing. No evidence of femoral head osteonecrosis. No fracture or dislocation is seen. If clinical concern persists, short-term follow-up imaging may be obtained to r ule out a currently occult fracture. Reading Location: [place] [id number]
== END | disposition home or self-care (01) ==
LOC: LAB 12:47 → RAD 12:48
PROVIDERS: PCP Family Medicine; Referring Provider Nurse Practitioner Family; Visit Provider Nurse Practitioner Family
DX: M25.552 Pain in left hip (principal); Z91.81 History of falling
CPT/HCPCS: 72110; 73502